=== PATIENT | male | born 1955 | race Caucasian/White ===

== ENCOUNTER → 2016-12-19 | Outpatient (CLI) | payer MEDICARE ==
--- NOTE | 2016-12-19 12:17 | CT ---
EXAMINATION TYPE: CT chest wo con DATE OF EXAM: 12/19/2016 11:18 AM COMPARISON: 06/01/2014 HISTORY: SOB CT DLP: 391.4 mGycm, Automated exposure control for dose reduction was used. CONTRAST: Performed injected with 0 mL of Omnipaque 300. TECHNIQUE: Axial images were obtained at 5 mm thick sections. Reconstructed images are reviewed on [employer] computer in the coronal plane. FINDINGS: Portion of the thyroid visualized is normal. Pulmonary fibrosis is within the right apex. Extensive emphysematous changes are present within the l eft lung. Pulmonary fibrosis is within the right middle lobe and lingula. Some posterior pulmonary fi brosis is present. No enlarged mediastinal or hilar adenopathy is evident. The ascending aorta diameter at the level o f the main pulmonary artery is 3.8 cm. The main pulmonary artery diameter at the bifurcation is 4.5 cm. Correlate for pulmonary hypertension. Coronary artery calcification is present. Limited CT sections are obtained through the upper abdomen. Abdomen is essentially unremarkable. IMPRESSIONS: 1. Pulmonary fibrosis and COPD. 2. Correlate for pulmonary hypertension.
== END | disposition home or self-care (01) ==
LOC: RADCTMAIN 11:00
PROVIDERS: ATTEND Internal Medicine
DX: J44.9 Chronic obstructive pulmonary disease, unspecified (principal); J84.10 Pulmonary fibrosis, unspecified
CPT/HCPCS: 71250

== ENCOUNTER → 2018-09-23 | Outpatient (CLI) | payer MEDICARE ==
[2018-09-23 10:56] LABS: Blood Urea Nitrogen 14 mg/dL (9-20)
--- NOTE | 2018-09-23 13:10 | CT ---
EXAMINATION TYPE: CT neck chest w con DATE OF EXAM: 09/23/2018 COMPARISON: CT chest 12/19/2016 HISTORY: 63-year-old male Malignant carcinoid tumors of other sites TECHNIQUE: Contiguous axial scanning of the neck and chest performed with IV Contrast, patient inject ed with 100 ml mL of Isovue 300. Coronal/sagittal reconstructions performed. CT DLP: 1243 mGycm Automated exposure control for dose reduction was used. FINDINGS: NECK: Visualized intracranial structures, orbits and globes, and mastoid air cells appear clear. Small muco patricia retention cyst anterior floor of the left maxillary sinus. The nasopharynx and oropharynx are clear. No prevertebral soft tissue thickening. Epiglottis is normal. There is an air pocket which projects right laterally from the level of the oropharynx between the hy oid bone and thyroid cartilage. This air-filled laryngocele measures 1.9 x 1.7 cm and 1.6 cm cranioca udal with both dilated internal and external components. There is some oblique orientation of the larynx and asymmetric effacement of the left frontal sinus w hich may be positional. Direct visualization can further evaluate slight asymmetric thickening of the left aryepiglottic fold (axial image 55) which may be a product of the positioning of the larynx. Th e tracheal column is clear. Thyroid gland, submandibular glands, and parotid glands appear satisfactory. No thoracic lymphadenopathy. Some prominent right-sided posterior cervical lymph nodes measuring up to 1.2 x 0.9 cm, axial image 4 5 and coronal image 84. Otherwise, no cervical lymphadenopathy. Mild cervical spondylosis. CHEST: Heart borderline enlarged without pericardial effusion. Coronary vessel calcifications are present. Large caliber to the main right and the pulmonary arteries and 3.3 and 3.8 cm, respectively. Aorta normal caliber with conventional branching anatomy. No thoracic lymphadenopathy by CT size criteria. Mild left greater than right asymmetric gynecomastia. Tavo honeycombing relatively sparing the left upper lobe or emphysematous changes demonstrated. No c onsolidation or pleural effusion. Tiny hiatal hernia. Visualized upper abdomen shows a nonspecific 1.5 cm hypodense lesion inferior right liver lobe and a nonspecific 1.9 cm soft tissue attenuating lesion of the anterior right kidney. Bones: End plate spondylosis mid to lower thoracic spine. No osseous destructive process. IMPRESSION: NECK: 1. INCIDENTAL 1.9 X 1.7 X 1.6 CM AIR-FILLED RIGHT SIDED LARYNGOCELE. 2. SLIGHT ASYMMETRIC THICKENING OF THE LEFT ARYEPIGLOTTIC FOLD MAY BE SECONDARY TO SLIGHT OBLIQUE POS ITIONING OF THE LARYNX. DIRECT VISUALIZATION TO EXCLUDE A MUCOSAL LESION. 3. PROMINENT POSTERIOR CERVICAL LYMPH NODES ON THE RIGHT MEASURING UP TO 1.2 X 0.9 CM. CORRELATE T O THIS REPRESENTS THE PATIENT'S METASTATIC NEUROENDOCRINE TUMOR. OTHERWISE, NO CERVICAL LYMPHADENOPAT HY SEEN. CHEST: 1. IN THE VISUALIZED UPPER ABDOMEN, THERE IS A NONSPECIFIC 1.9 CM SOFT TISSUE DENSITY LESION OF THE A NTERIOR RIGHT KIDNEY. BOTH SOLID MASS AND PROTEINACEOUS/HEMORRHAGIC CYST ARE POSSIBLE. RECOMMEND KAROL L ULTRASOUND TO ATTEMPT FURTHER CHARACTERIZATION. IF THE ULTRASOUND REMAINS INCONCLUSIVE, DEDICATED C ROSS-SECTIONAL KIDNEY IMAGING MAY BE NEEDED. 2. ALSO, INDETERMINATE 1.5 CM LESION INFERIOR RIGHT LIVER LOBE. NOT CLEARLY SEEN ON THE PATIENT'S 2017 NONCONTRAST STUDY. CORRELATE TO THE SITE OF PATIENT'S KNOWN CARCINOID TUMOR. THIS IS A NONSPECIFIC LESION BUT METASTATIC DISEASE IS NOT EXCLUDED AT THIS TIME. 3. TAVO HONEYCOMBING SUGGESTS UIP PATTERN OF LUNG INJURY. PULMONARY ARTERIAL HYPERTENSION AND BORDER LINE CARDIOMEGALY.
== END ==
LOC: RADCTMAIN 10:21
PROVIDERS: ATTEND Otolaryngology
DX: J38.7 Other diseases of larynx (principal); N28.89 Other specified disorders of kidney and ureter; I27.21 Secondary pulmonary arterial hypertension; I51.7 Cardiomegaly; C7A.098 Malignant carcinoid tumors of other sites
CPT/HCPCS: 82565; 84520; 70491; 71260; 36415; Q9967

== ENCOUNTER → 2018-10-11 | Outpatient (CLI) | payer MEDICARE ==
--- NOTE | 2018-10-13 10:57 | PE ---
Nuclear medicine PET/CT HISTORY: Neck mass, initial, neuroendocrine tumor metastasis Patient received 11.8 mCi F-18 FDG intravenously, delayed scanning was performed from the skull base to the mid thighs. Localization and attenuation correction CT scan was performed. Correlation to prior neck and chest CT 09/23/2017, CT chest 12/19/2016 Neck and chest: Within the posterior right neck there is a small node present subcentimeter in size m easuring 7 mm and shows some mild increased uptake, SUV is 2.8, second node is present at the same le cookie of similar size and hypermetabolic uptake as noted on patient's CT. Pulmonary artery is prominent , correlate for possible pulmonary artery hypertension. Heart is enlarged. There are coronary artery calcifications present. No mediastinal, axillary, or hilar adenopathy. Extensive emphysematous change s, end-stage fibrosis change present within the lungs. Abdomen pelvis: The left kidney is not seen. Focus in the inferior aspect of the right lobe of the li zhou shows hypermetabolic uptake measuring 8 cm, there is vague hypodensity measuring approximately 2 cm in size. No additional abnormal hypermetabolic uptake. Probable physiologic uptake involving the r ight colon. Suspect a Hutch diverticulum posterior laterally at the urinary bladder. Extensive divert icular change in the sigmoid colon. Osseous structures are remarkable except for sclerotic focus in the mid sacrum. No suspicious hyperme tabolic uptake. IMPRESSION: Findings compatible with metastatic disease.
== END ==
LOC: RADPETMAIN 14:23
PROVIDERS: ATTEND Otolaryngology
DX: C7A.8 Other malignant neuroendocrine tumors (principal)
CPT/HCPCS: 78815; A9552

== ENCOUNTER 2019-01-08 14:30 | Inpatient (IN) | payer MEDICARE ==
[2019-01-08] MEDS ORDERED: DEXAMETHASONE SOD PHOSPHATE 10 MG/ML 1 ML VIAL IV STA (14:51)
[2019-01-08] MEDS ORDERED: IPRATROPIUM-ALBUTEROL 3 ML NEB INHALATION STA (14:51)
[2019-01-08] MEDS ORDERED: AZITHROMYCIN 500 MG in SODIUM CHLORIDE 0.9% 250 ML IVPB STA (14:52)
--- NOTE | 2019-01-08 14:57 | ED ---
General Adult HPI - General Chief complaint: Shortness of Breath Stated complaint: Low O2 CA PT Time Seen by Provider: 01/08/19 14:37 Source: patient Mode of arrival: wheelchair Limitations: no limitations - History of Present Illness Initial comments: Dictation was produced using [employer] dictation software. please excuse any grammatical, word or spelling errors. Chief Complaint: 63-year-old male past medical history pulmonary fibrosis presents with worsening dyspnea. History of Present Illness: His 63-year-old male. He has past medical history of pulmonary fibrosis. He uses 5 L nasal cannula chronically. Patient states over the last 3-4 days he's been having worsening shortness of breath. Patient had received chemotherapy recently. He states that he has had increased cough, but nonproductive. He does feel worsening shortness of breath. Patient denies any fever, chills or night sweats. Denies any numbness or paresthesias to the arms or legs. Denies any sore throat. He does report some mild urinary Sy mptoms. Denies any history of blood clots. He does report being on anti- coagulation medications however does not know the name of it. The ROS documented in this emergency department record has been reviewed and confirmed by me. Those systems with pertinent positive or negative responses have been documented in the HPI. All other systems are other negative and/or noncontributory. PHYSICAL EXAM: General Impression: Alert and oriented x3, dyspneic HEENT: Normocephalic atraumatic, extra-ocular movements intact, pupils equal and reactive to light bilaterally, mucous membranes moist. Cardiovascular: Heart regular rate and rhythm, S1&S2 audible, no murmurs, rubs or gallops Chest: Bilateral breath sounds, mild wheezing Abdomen: Bowel sounds present, abdomen soft, non-tender, non-distended, no organomegaly Musculoskeletal: Pulses present and equal in all extremities, no peripheral edema Motor: no focal deficits noted Neurological: CN II-XII grossly intact, no focal motor or sensory deficits noted Skin: Intact with no visualized rashes Psych: Normal affect and mood ED course: 63-year-old male presents with acute respiratory distress. States the symptoms have been progressively worsening over the last 2-3 days. Vital signs upon arrival shows oxygen and 80% on 5 L nasal cannula. Rest of vital signs are unremarkable. Lavatory evaluation shows white blood cell count 22.1. Hemoglobin stable at 11.7. CBC otherwise appears unchanged. Coag panel unremarkable. Metabolic panel shows alkalosis likely secondary to chronic respiratory disease. Metabolic panel is otherwise unremarkable. Prematurity peptide 3620. Chest x- ray showed chronic stable pulmonary fibrosis. There is concern that patient had pulmonary embolus. CT angios obtained showing no PE. Clinical presentation is concerning for COPD exacerbation. Patient given breathing treatment with mild improvement of symptoms. Patient is comfortable at bedside. Patient given corticosteroids and antibiotics. Patient be admitted to Dr. Terry with pulmonology on consult. EKG interpretation: Ventricular rate 124, sinus tachycardia,. Interval 116, QS 100, QTC 460. No MN prolongation, no QTC prolongation, no ST or T-wave changes noted. - Related Data Home Medications Medication Instructions Recorded Confirmed Atorvastatin [Lipitor] 10 mg PO DAILY 01/08/19 01/08/19 Fluticasone Nasal [place] [Flonase 2 spray EA NOSTRIL DAILY 01/08/19 01/08/19 Nasal [place]] HYDROcodone/APAP 5-325MG [[place] 1 tab PO BID PRN 01/08/19 01/08/19 5-325] Ibuprofen [Motrin] 800 mg PO TID 01/08/19 01/08/19 Losartan [Cozaar] 25 mg PO DAILY 01/08/19 01/08/19 Ondansetron [Zofran] 4 mg PO Q6HR PRN 01/08/19 01/08/19 Pirfenidone [Esbriet] 3 tab PO DAILY 01/08/19 01/08/19 Sulfamethox-Tmp 800-160Mg [Bactrim 1 tab PO MOWEFR 01/08/19 01/08/19 DS 800-160 mg] predniSONE 1 - 2 tab PO DAILY 01/08/19 01/08/19 Allergies Allergy/AdvReac Type Severity Reaction Status Date / Time No Known Allergies Allergy Verified 01/08/19 15:03 Review of Systems ROS Statement: Those systems with pertinent positive or pertinent negative responses have been documented in the HPI. ROS Other: All systems not noted in ROS Statement are negative. Past Medical History History of Any Multi-Drug Resistant Organisms: None Reported Past Psychological History: No Psychological Hx Reported Smoking Status: Never smoker Past Alcohol Use History: None Reported Past Drug Use History: None Reported General Exam Limitations: no limitations Course Vital Signs 01/08/19 01/08/19 01/08/19 14:33 14:35 15:00 Temperature 98.0 F Pulse Rate 90 Respiratory 20 30 H 21 Rate Blood Pressure 92/57 111/67 O2 Sat by Pulse 80 L 93 L Oximetry 01/08/19 01/08/19 01/08/19 15:08 15:17 15:30 Temperature Pulse Rate 64 64 Respiratory 19 Rate Blood Pressure 98/75 O2 Sat by Pulse 95 Oximetry 01/08/19 16:00 Temperature Pulse Rate 98 Respiratory 21 Rate Blood Pressure 106/72 O2 Sat by Pulse 90 L Oximetry Medical Decision Making - Lab Data Result diagrams: 01/08/19 14:48 01/08/19 14:48 Lab Results 01/08/19 01/08/19 01/08/19 Range/Units 14:48 14:48 14:48 WBC 23.1 H (3.8-10.6) k/uL RBC 3.42 L (4.30-5.90) m/uL Hgb 11.7 L (13.0-17.5) gm/dL Hct 36.3 L (39.0-53.0) % MCV 106.2 H (80.0-100.0) fL MCH 34.2 (25.0-35.0) pg MCHC 32.2 (31.0-37.0) g/dL RDW 22.5 H (11.5-15.5) % Plt Count 130 L (150-450) k/uL Neutrophils % 95 % Lymphocytes % 2 % Monocytes % 2 % Eosinophils % 0 % Basophils % 0 % Neutrophils # 21.9 H (1.3-7.7) k/uL Lymphocytes # 0.5 L (1.0-4.8) k/uL Monocytes # 0.5 (0-1.0) k/uL Eosinophils # 0.1 (0-0.7) k/uL Basophils # 0.0 (0-0.2) k/uL Poikilocytosis Slight Anisocytosis Moderate Macrocytosis Marked A PT 11.6 (9.0-12.0) sec INR 1.1 (<1.2) APTT 18.3 L (22.0-30.0) sec Sodium 138 (137-145) mmol/L Potassium 4.3 (3.5-5.1) mmol/L Chloride 96 L (98-107) mmol/L Carbon Dioxide 33 H (22-30) mmol/L Anion Gap 9 mmol/L BUN 19 (9-20) mg/dL Creatinine 0.82 (0.66-1.25) mg/dL Est GFR (CKD-EPI)AfAm >90 (>60 ml/min/1.73 sqM) Est GFR (CKD-EPI)NonAf >90 (>60 ml/min/1.73 sqM) Glucose 183 H (74-99) mg/dL Calcium 9.6 (8.4-10.2) mg/dL Magnesium 1.7 (1.6-2.3) mg/dL Total Bilirubin 0.5 (0.2-1.3) mg/dL AST 38 (17-59) U/L ALT 33 (21-72) U/L Alkaline Phosphatase 118 (38-126) U/L Troponin I (0.000-0.034) ng/mL NT-Pro-B Natriuret Pep pg/mL Total Protein 6.5 (6.3-8.2) g/dL Albumin 4.3 (3.5-5.0) g/dL 01/08/19 01/08/19 Range/Units 14:48 14:48 WBC (3.8-10.6) k/uL RBC (4.30-5.90) m/uL Hgb (13.0-17.5) gm/dL Hct (39.0-53.0) % MCV (80.0-100.0) fL MCH (25.0-35.0) pg MCHC (31.0-37.0) g/dL RDW (11.5-15.5) % Plt Count (150-450) k/uL Neutrophils % % Lymphocytes % % Monocytes % % Eosinophils % % Basophils % % Neutrophils # (1.3-7.7) k/uL Lymphocytes # (1.0-4.8) k/uL Monocytes # (0-1.0) k/uL Eosinophils # (0-0.7) k/uL Basophils # (0-0.2) k/uL Poikilocytosis Anisocytosis Macrocytosis PT (9.0-12.0) sec INR (<1.2) APTT (22.0-30.0) sec Sodium (137-145) mmol/L Potassium (3.5-5.1) mmol/L Chloride (98-107) mmol/L Carbon Dioxide (22-30) mmol/L Anion Gap mmol/L BUN (9-20) mg/dL Creatinine (0.66-1.25) mg/dL Est GFR (CKD-EPI)AfAm (>60 ml/min/1.73 sqM) Est GFR (CKD-EPI)NonAf (>60 ml/min/1.73 sqM) Glucose (74-99) mg/dL Calcium (8.4-10.2) mg/dL Magnesium (1.6-2.3) mg/dL Total Bilirubin (0.2-1.3) mg/dL AST (17-59) U/L ALT (21-72) U/L Alkaline Phosphatase (38-126) U/L Troponin I <0.012 (0.000-0.034) ng/mL NT-Pro-B Natriuret Pep 3620 pg/mL Total Protein (6.3-8.2) g/dL Albumin (3.5-5.0) g/dL Disposition Clinical Impression: Dyspnea Disposition: ADMITTED IP TO THIS HOSP Condition: Fair Referrals: Shashi England MD [Primary Care Provider] - 1-2 days Decision Time: 16:43
[2019-01-08 15:18] LABS: ALT 33 U/L (21-72); AST 38 U/L (17-59); African American GFR (CKD) >90 (>60 ml/min/1.73 sqM); Albumin 4.3 g/dL (3.5-5.0); Alkaline Phosphatase 118 U/L (38-126); Anion Gap 9 mmol/L; Blood Urea Nitrogen 19 mg/dL (9-20); Calcium 9.6 mg/dL (8.4-10.2); Carbon Dioxide 33 mmol/L (22-30); Chloride 96 mmol/L (98-107); Glucose 183 mg/dL (74-99); Magnesium 1.7 mg/dL (1.6-2.3); Potassium 4.3 mmol/L (3.5-5.1); Sodium 138 mmol/L (137-145); Total Bilirubin 0.5 mg/dL (0.2-1.3); Total Protein 6.5 g/dL (6.3-8.2)
[2019-01-08 15:24] LABS: Anisocytosis Moderate; Basophils % (A) 0 %; Eosinophils # (A) 0.1 k/uL (0-0.7); Eosinophils % (A) 0 %; HCT 36.3 % (39.0-53.0); HGB 11.7 gm/dL (13.0-17.5); INR 1.1 (<1.2); Lymphocytes # (A) 0.5 k/uL (1.0-4.8); Lymphocytes % (A) 2 %; MCH 34.2 pg (25.0-35.0); MCHC 32.2 g/dL (31.0-37.0); MCV 106.2 fL (80.0-100.0); Macrocytosis Marked; Mean Platelet Volume 8.8; Monocytes # (A) 0.5 k/uL (0-1.0); Monocytes % (A) 2 %; Neutrophils # (A) 21.9 k/uL (1.3-7.7); Neutrophils % (A) 95 %; Platelet Count 130 k/uL (150-450); Poikilocytosis Slight; Prothrombin Time 11.6 sec (9.0-12.0); RBC 3.42 m/uL (4.30-5.90); RDW 22.5 % (11.5-15.5); WBC 23.1 k/uL (3.8-10.6)
[2019-01-08 15:41] LABS: Partial Thromboplastin Time 18.3 sec (22.0-30.0)
--- NOTE | 2019-01-08 16:21 | XR ---
EXAMINATION TYPE: XR chest 2V DATE OF EXAM: 01/08/2019 COMPARISON: 05/29/2018 INDICATION: Difficulty breathing TECHNIQUE: Frontal and lateral views of the chest are obtained. FINDINGS: The heart size is mildly prominent. The pulmonary vasculature is normal. There is diffuse increased lung markings compatible pulmonary fibrosis. Pattern and distribution appe ars stable from comparison. IMPRESSION: 1. No suspicious acute pulmonary process. 2. Findings suggestive for underlying pulmonary fibrosis, stable
--- NOTE | 2019-01-08 16:37 | CT ---
CT CHEST FOR PULMONARY EMBOLISM. EXAMINATION TYPE: CT angio chest DATE OF EXAM: 01/08/2019 INDICATION: SOB, hx of pulmonary fibrosis CT DLP: 289 mGycm, Automated exposure control for dose reduction was used. CONTRAST: Patient injected with 80 mL of Isovue 370. COMPARISON: 09/23/2018 TECHNIQUE: CT of the chest is performed on a spiral scan at 2 mm thick sections. Study is performed with intravenous contrast timed for evaluation for pulmonary embolism. This will limit additional po rtions of the evaluation. 3-D MIP images reconstructed by the technologist are reviewed on the compu ter in the coronal and sagittal planes. FINDINGS: No persistent filling defects are evident to suggest an acute pulmonary embolism. No mediastinal or hilar adenopathy enlarged by CT criteria is evident. The ascending aorta diameter at the level of the main pulmonary artery is 3.5 cm. The main pulmonary artery diameter at the bifur cation is 4.4 cm. Correlate for pulmonary hypertension. Mild reflux is into the inferior vena cava. H eart Septum appears midline. Extensive emphysematous type changes with multiple blebs and bulla are present. Limited CT section through the upper abdomen are unremarkable. IMPRESSIONS: 1. No acute pulmonary embolism. 2. Extensive pulmonary fibrosis and/or emphysematous changes within the lung cui. 3. Pulmonary hypertension.
[2019-01-08] MEDS ORDERED: ONDANSETRON 4 MG TAB PO PRN (16:46)
[2019-01-08] MEDS: methylPREDNISolone SOD SUCCI 125 MG/2 ML VIAL IV SCH (18:23)
[2019-01-08] MEDS: HYDROcodone/APAP 5-325MG 1 EACH TAB PO PRN (19:35)
[2019-01-08 21:22] LABS: Glucose,Whole Blood 216 mg/dL (75-99)
[2019-01-08] MEDS: INSULIN ASPART (NovoLOG) 100 UNIT/ML VIAL SQ SCH (21:44)
[2019-01-08] MEDS: FLUTICASONE 50MCG/SPRAY NASAL 16GM EA NOSTRIL SCH (21:45)
[2019-01-09] MEDS: methylPREDNISolone SOD SUCCI 125 MG/2 ML VIAL IV SCH ×4 (00:44→21:46)
[2019-01-09] MEDS: IBUPROFEN 800 MG TAB PO SCH ×3 (00:44→16:24)
[2019-01-09 06:25] LABS: Glucose,Whole Blood 96 mg/dL (75-99)
[2019-01-09] MEDS: INSULIN ASPART (NovoLOG) 100 UNIT/ML VIAL SQ SCH ×4 (06:27→21:47)
[2019-01-09] MEDS: SYMBICORT 160-4.5 MCG INHALER INHALATION SCH ×2 (08:12→20:43)
--- NOTE | 2019-01-09 08:26 | HP ---
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 Since he has been kind of weak and fatigued and increased productive cough. Denies any fever, chills, night sweats. He says maybe chemotherapy made him immune or his immune system poor. This is generally like a COPD exacerbation, possible pneumonia. REVIEW OF SYSTEMS: Fourteen point review of systems negative except for mentioned in HPI. HISTORY OF PRESENT ILLNESS: Vital signs reviewed. Temp 98, respiratory 20-21, O2 is 80% on 5 L, now up to 93. CARDIOVASCULAR S1-S2. LUNGS scattered wheeze. ABDOMEN: Soft. MUSCULOSKELETAL: Range of motion full. Thin, cachectic. SKIN: No rash excoriations. ASSESSMENT: 1. Chronic obstructive pulmonary disease exacerbation. 2. Tracheobronchitis versus pneumonia. 3. Leukocytosis secondary to above. 4. Acute hypoxemic respiratory distress secondary to above. 5. CT of the chest negative for pulmonary embolism. 6. He has sinus tachycardia secondary to above. 7. History of small-cell cancer of the neck. PLANS: Continue with IV antibiotics, steroids. Pulmonary consult. Troponins negative. BNP 3620. Please see further orders. MMODL / IJN: [id number] /
[2019-01-09] MEDS ORDERED: predniSONE 20 MG TAB PO SCH (09:00)
[2019-01-09] MEDS: LOSARTAN 25 MG TAB PO SCH (09:13)
[2019-01-09] MEDS: AZITHROMYCIN 500 MG TAB PO SCH (09:13)
[2019-01-09] MEDS: HYDROcodone/APAP 5-325MG 1 EACH TAB PO PRN ×2 (09:13→21:46)
[2019-01-09] MEDS: ATORVASTATIN 10 MG TAB PO SCH (09:15)
[2019-01-09] MEDS: PIRFENIDONE PO SCH (09:17)
--- NOTE | 2019-01-09 09:39 | CONS ---
CONSULTATION PULMONARY/CRITICAL CARE CONSULTATION: This is a 63-year-old male who I have seen before who sees my partner on a more regular basis. His primary care physician is Dr. Shashi England. He apparently was brought into the emergency room by wheelchair with low saturations and shortness of breath. He apparently has a well-established history of pulmonary fibrosis and has been on both prednisone and anti-fibrotic agent for a long period of time. I think he initially saw me then my partner and he ended up having a lung biopsy showing evidence of idiopathic pulmonary fibrosis and he was sent to Dr. Mega gardner at [facility] for his evaluation. Currently, the patient is on Esbriet and prednisone for his pulmonary fibrosis. More recently, he was discovered to have a neck mass which was biopsied via fine needle. 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 The patient has undergone 3 rounds of chemotherapy. Anyway he comes in with complaints of a 3 to 4 days worth of increasing shortness of breath, chest congestion, coughing, wheezing, phlegm production. No fever or chills. No chest pain or chest discomfort. No GI or complaints. For that reason, he was evaluated and eventually admitted to the hospital. He appears to have seen Dr. Marti in the emergency room. MEDICATIONS: His current home medications include Lipitor, Flonase nasal spray, [place], Motrin, Cozaar, Zofran, Esbriet, Bactrim and prednisone. ALLERGIES: Allergies are denied. MEDICAL HISTORY: His medical history includes hyperlipidemia, biopsy-proven idiopathic pulmonary fibrosis, hypertension, and a few other minor medical issues. SURGICAL HISTORY: Surgical history includes among other things a lung biopsy. OCCUPATIONAL HISTORY: Noncontributory. SOCIAL HISTORY: Social history is negative for tobacco or alcohol or illicit drug use. The rest of the history is not too remarkable. Allergic history is negative. REVIEW OF SYSTEMS: CONSTITUTIONAL: Weakness. NEUROLOGIC: Negative. HEENT: Negative. CARDIOVASCULAR: Negative. PULMONARY: Worsening shortness of breath, cough, chest congestion and phlegm production. GI: Negative. : Negative. RHEUMATOLOGIC: Negative. IMMUNOLOGIC: Negative. ENDOCRINOLOGIC: Negative. DERMATOLOGIC: Negative. It should be pointed out that he has undergone 3 rounds of chemotherapy for his high- grade neuroendocrine carcinoma and recently had a PET scan which apparently showed evidence of metastatic disease. PHYSICAL EXAMINATION: VITAL SIGNS: Vital signs are reviewed. Temperature 98.2, heart rate 96, respiratory rate 18, blood pressure 134/58, mean 83 and 5 L saturation is 95%. GENERAL: Appears in no acute distress. Mildly tachypneic. No use of accessory muscles. No audible wheezing. Minimal conversational dyspnea. HEENT: Examination is grossly unremarkable. He is wearing nasal O2. NECK: Supple. Full range of motion. No adenopathy or thyromegaly. Neck veins are flat. CARDIOVASCULAR: Examination reveals regular rhythm and rate. Heart rate about 70 beats per minute. It is regular. S1, S2 normal. Heart sounds are somewhat obscured. LUNGS: Reveal bibasilar Velcro crackles. His exam is consistent with pulmonary fibrosis. He is mildly restricted in his breathing. No rhonchi or wheezes. Breath sounds are equal. ABDOMEN: Soft. Bowel sounds are heard. No masses or tenderness. EXTREMITIES: Are intact. No cyanosis, clubbing, or edema. SKIN: Without rash. NEUROLOGIC: Examination is nonfocal. The patient had a chest x-ray which showed pulmonary fibrosis. His chest CT angiogram was consistent with pulmonary fibrosis without pulmonary embolism. LABS: Labs are reviewed. White count 23.1, hemoglobin 11.7, hematocrit 36.3, platelet count 130,000. PT, INR normal. PTT 18.3. Sodium 138, potassium 4.3, chloride 96, CO2 is 33. Anion gap is 9. BUN and creatinine were 19 and 0.82. The rest of the comprehensive metabolic profile looks okay. N terminal proBNP is elevated at 3620. The rest of the labs look okay. ASSESSMENT: 1. Shortness of breath, secondary to biopsy-proven pulmonary fibrosis/interstitial lung disease/usual interstitial pneumonia, currently on anti-fibrotic agent, i.e. Esbriet as well as prednisone. 2. Rule out occult pulmonary infection. 3. High-grade neuroendocrine carcinoma, status post 3 rounds of chemotherapy, with recent PET scan showing metastatic disease. 4. History of hyperlipidemia. 5. History of degenerative joint disease. 6. History of hypertension. PLAN: The patient's medications will be reviewed. We will make sure we get him on good medications including breathing treatments and steroids as well as some oral antibiotics. His CAT scan and x-ray really have not changed from previous test. We will also have him see the oncologist. Additional recommendations and suggestions are forthcoming. Prognosis is guarded. MMODL / IJN: [id number] /
--- NOTE | 2019-01-09 10:47 | CDI ---
Documentation Clarification Form Date: 01/09/2019 10:35:07 AM From: Jazzy OronaRodriguezJAY coley, CCDS Admit Date: 01/08/2019 4:43:00 PM Patient Name: Andrea Cash Visit Number: [id number] Discharge Date: ATTENTION: The Clinical Documentation Specialists (CDI) and [facility] Coding Staff appreciate your assistance in clarifying documentation. Please respond to the clarification below the line at the bottom and electronically sign. The CDI & [facility] Coding staff will review the response and follow-up if needed. Please note: Queries are made part of the Legal Health Record. If you have any questions, please contact the author of this message via ITS. Dr. Shashi England: The patient presented with the following respiratory symptoms: SOB, productive cough, weak & fatigued. History/Risk Factors: Non small cell carcinoma of the neck status post 3 rounds of chemo, most recent 2 weeks ago, possible metastatic disease nos. COPD, Home O2 5L nc atc, Pulmonary fibrosis. Tobacco use: non smoker. Clinical Indicators: Presented as above. Diagnosed with Acute hypoxemic respiratory distress, documented in History & Physical and possible COPD exacerbation, possible pneumonia. Vital signs: T 98.0, P 90, R 20 - 30 (sob, labored, accessory muscle use); BP 92/57, PO 80 on 5Lnc. LABS: CO2 33^, Glucose 183^ Treatment: Telemetry, Insulin sliding scale, Blood culture, Albuterol INH, IV Decadron, IV Azithromycin, IV Rocephin. O2 5Lnc. In your professional opinion, can you please clarify the acuity & specificity of the patients respiratory findings as one of the following conditions, if known: Acuity & Specificity: o Acute on Chronic Hypoxic Respiratory Failure o Acute hypoxemic respiratory distress (as documented) o Other Acute, Chronic or Acute on Chronic Respiratory condition, please specify: o Unable to determine (Last Revision: November 2017) MTDD
[2019-01-09] MEDS: FLUTICASONE 50MCG/SPRAY NASAL 16GM EA NOSTRIL SCH (11:11)
[2019-01-09 11:58] LABS: Glucose,Whole Blood 135 mg/dL (75-99)
[2019-01-09] MEDS: IPRATROPIUM-ALBUTEROL 3 ML NEB INHALATION PRN (16:27)
[2019-01-09 16:57] LABS: Glucose,Whole Blood 117 mg/dL (75-99)
[2019-01-09 20:43] LABS: Glucose,Whole Blood 241 mg/dL (75-99)
[2019-01-10] MEDS: IBUPROFEN 800 MG TAB PO SCH ×4 (05:29→21:08)
[2019-01-10 06:10] LABS: Glucose,Whole Blood 137 mg/dL (75-99)
[2019-01-10] MEDS: INSULIN ASPART (NovoLOG) 100 UNIT/ML VIAL SQ SCH ×4 (06:35→21:03)
[2019-01-10 06:58] LABS: Anisocytosis Moderate; Basophils # (A) 0.1 k/uL (0-0.2); Basophils % (A) 0 %; Eosinophils # (A) 0.1 k/uL (0-0.7); Eosinophils % (A) 0 %; HCT 34.6 % (39.0-53.0); HGB 10.8 gm/dL (13.0-17.5); Hypochromasia Slight; Lymphocytes # (A) 0.7 k/uL (1.0-4.8); Lymphocytes % (A) 2 %; MCH 33.9 pg (25.0-35.0); MCHC 31.3 g/dL (31.0-37.0); MCV 108.3 fL (80.0-100.0); Mean Platelet Volume 8.2; Monocytes # (A) 0.5 k/uL (0-1.0); Monocytes % (A) 2 %; Neutrophils % (A) 96 %; Platelet Count 211 k/uL (150-450); WBC 33.4 k/uL (3.8-10.6)
[2019-01-10 07:07] LABS: Macrocytosis Marked
[2019-01-10 07:10] LABS: ALT 34 U/L (21-72); AST 37 U/L (17-59); African American GFR (CKD) >90 (>60 ml/min/1.73 sqM); Albumin 3.6 g/dL (3.5-5.0); Alkaline Phosphatase 100 U/L (38-126); Anion Gap 6 mmol/L; Blood Urea Nitrogen 20 mg/dL (9-20); Calcium 9.1 mg/dL (8.4-10.2); Carbon Dioxide 35 mmol/L (22-30); Chloride 98 mmol/L (98-107); Glucose 136 mg/dL (74-99); Potassium 4.7 mmol/L (3.5-5.1); Sodium 139 mmol/L (137-145); Total Bilirubin 0.3 mg/dL (0.2-1.3); Total Protein 5.9 g/dL (6.3-8.2)
[2019-01-10] MEDS: SYMBICORT 160-4.5 MCG INHALER INHALATION SCH ×2 (08:19→19:13)
[2019-01-10] MEDS: PIRFENIDONE PO SCH (09:07)
[2019-01-10] MEDS: LOSARTAN 25 MG TAB PO SCH (09:18)
[2019-01-10] MEDS: FLUTICASONE 50MCG/SPRAY NASAL 16GM EA NOSTRIL SCH (09:18)
[2019-01-10] MEDS: methylPREDNISolone SOD SUCCI 125 MG/2 ML VIAL IV SCH ×3 (09:19→21:02)
[2019-01-10] MEDS: ATORVASTATIN 10 MG TAB PO SCH (09:19)
[2019-01-10] MEDS: AZITHROMYCIN 500 MG TAB PO SCH (09:19)
--- NOTE | 2019-01-10 09:19 | DS ---
DISCHARGE SUMMARY ADDENDUM: Acute hypoxemic respiratory distress. MMODL / IJN: [id number] /
--- NOTE | 2019-01-10 09:24 | P.PN ---
Subjective Progress Note Date: 01/10/19 Principal diagnosis: Acute on chronic hypoxic respiratory failure secondary to biopsy-proven idiopathic pulmonary fibrosis Patient is seen today 01/10/2019 in follow-up on the selective care unit. Currently resting comfortably in bed. Breathing a bit easier today as compared to yesterday. Still dyspneic on minimal exertion. Still with O2 saturations in the high 80s low 90s on 5 L/m per nasal cannula. He is currently afebrile. Blood culture reveals no growth to date. White count 33.4. Hemoglobin 10.8. Creatinine 0.60. He remains on DuoNeb inhalations, Symbicort, IV Solu-Medrol. Antibiotics in the form of ceftriaxone and azithromycin. CT angiogram ruled out pulmonary embolism. There is noticed extensive pulmonary fibrosis and/or emphysematous changes in the lung cui. Pulmonary hypertension. He is on Esbriet. Objective - Vital Signs Vital signs: Vital Signs Temp 97.4 F L 01/10/19 04:00 Pulse 89 01/10/19 04:00 Resp 24 01/10/19 04:00 BP 142/98 01/10/19 04:00 Pulse Ox 88 L 01/10/19 04:00 Intake & Output 01/09/19 01/10/19 01/10/19 18:59 06:59 18:59 Intake Total 380 300 240 Output Total 550 Balance 380 -250 240 Weight 67.9 kg 70 kg Intake: Intake, IV Titration 50 100 Amount cefTRIAXone 1 gm In 50 100 Sodium Chloride 0.9% 50 ml @ 100 mls/hr IVPB Q12HR [facility] Rx#:[id number] Oral 330 200 240 Output: Urine 550 Other: # Voids 3 # Bowel Movements 0 - Exam GENERAL EXAM: Pleasant 63-year-old gentleman. Alert, fairly comfortable in no apparent distress. On 5 L/m per nasal cannula. HEAD: Normocephalic. EYES: Normal reaction of pupils, equal size. NOSE: Clear with pink turbinates. THROAT: No erythema or exudates. NECK: No masses, no JVD. CHEST: No chest wall deformity. LUNGS: Equal air entry with coarse crackles in the bilateral posterior bases. CVS: S1 and S2 normal with no audible murmur, regular rhythm. ABDOMEN: No hepatosplenomegaly, normal bowel sounds, no guarding or rigidity. SPINE: No scoliosis or deformity SKIN: No rashes CENTRAL NERVOUS SYSTEM: No focal deficits, tone is normal in all 4 extremities. EXTREMITIES: There is no peripheral edema. No clubbing, no cyanosis. Peripheral pulses are intact. - Labs CBC & Chem 7: 01/10/19 06:24 01/10/19 06:24 Labs: Abnormal Lab Results - Last 24 Hours (Table) 01/09/19 01/09/19 01/09/19 Range/Units 11:40 16:55 20:42 WBC (3.8-10.6) k/uL RBC (4.30-5.90) m/uL Hgb (13.0-17.5) gm/dL Hct (39.0-53.0) % MCV (80.0-100.0) fL RDW (11.5-15.5) % Neutrophils # (1.3-7.7) k/uL Lymphocytes # (1.0-4.8) k/uL Macrocytosis Carbon Dioxide (22-30) mmol/L Creatinine (0.66-1.25) mg/dL Glucose (74-99) mg/dL POC Glucose (mg/dL) 135 H 117 H 241 H (75-99) mg/dL Total Protein (6.3-8.2) g/dL 01/10/19 01/10/19 01/10/19 Range/Units 06:09 06:24 06:24 WBC 33.4 H (3.8-10.6) k/uL RBC 3.20 L (4.30-5.90) m/uL Hgb 10.8 L (13.0-17.5) gm/dL Hct 34.6 L (39.0-53.0) % MCV 108.3 H (80.0-100.0) fL RDW 23.0 H (11.5-15.5) % Neutrophils # 32.0 H (1.3-7.7) k/uL Lymphocytes # 0.7 L (1.0-4.8) k/uL Macrocytosis Marked A Carbon Dioxide 35 H (22-30) mmol/L Creatinine 0.60 L (0.66-1.25) mg/dL Glucose 136 H (74-99) mg/dL POC Glucose (mg/dL) 137 H (75-99) mg/dL Total Protein 5.9 L (6.3-8.2) g/dL Microbiology - Last 24 Hours (Table) 01/08/19 14:50 Blood Culture - Preliminary Blood No Growth after 24 hours Assessment and Plan Assessment: Impression: #1 Acute on chronic hypoxic respiratory failure secondary to biopsy-proven idiopathic pulmonary fibrosis. Cannot rule out underlying pneumonic process. #2 Leukocytosis secondary to above. 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 FNA 08/19/2018. Receiving chemotherapy. #4 Hypertension. #5 Hyperlipidemia. The patient was seen and evaluated by Dr. Washington. We will continue the current treatment plan. Continue bronchodilators and IV Solu-Medrol. Remains on ceftriaxone and azithromycin. Continue his home Esbriet. Titrate down the FiO2 as tolerated. We will continue to follow and make further recommendations based on his clinical status. I, the cosigning physician, performed a history & physical examination of the patient. Lungs sounds with coarse crackles in the bilateral posterior bases. Maintaining good O2 saturations in the 90s on 5 L/m per nasal cannula. I discussed the assessment and plan of care with my nurse practitioner, Beatriz Issa. I attest to the above note as dictated by her.
[2019-01-10 11:50] LABS: Glucose,Whole Blood 165 mg/dL (75-99)
[2019-01-10] MEDS: HYDROcodone/APAP 5-325MG 1 EACH TAB PO PRN ×2 (11:53→21:02)
--- NOTE | 2019-01-10 13:14 | P.PN ---
Subjective Progress Note Date: 01/10/19 Principal diagnosis: Acute on chronic hypoxic respiratory failure, idiopathic pulmonary fibrosis, leukocytosis, right neck mass, high-grade neuroendocrine tumor, hypertension hypertensive cardiovascular disease, dyslipidemia 01/10/2019, patient seen and evaluated examined while covering for Dr. Shashi England, patient is resting on supplemental oxygen, computed tomography scan reviewed labs reviewed remains on IV antibiotics and IV steroids along with bronchodilator, patient has idiopathic pulmonary fibrosis with history of recent neuroendocrine tumor presenting as a neck mass has been on antibiotics and breathing treatment Objective - Vital Signs Vital signs: Vital Signs Temp 97.7 F 01/10/19 08:00 Pulse 80 01/10/19 08:00 Resp 20 01/10/19 08:00 BP 125/75 01/10/19 08:00 Pulse Ox 90 L 01/10/19 08:00 Intake & Output 01/09/19 01/10/19 01/10/19 18:59 06:59 18:59 Intake Total 380 300 240 Output Total 550 Balance 380 -250 240 Weight 67.9 kg 70 kg Intake: Intake, IV Titration 50 100 Amount cefTRIAXone 1 gm In 50 100 Sodium Chloride 0.9% 50 ml @ 100 mls/hr IVPB Q12HR [facility] Rx#:[id number] Oral 330 200 240 Output: Urine 550 Other: # Voids 3 # Bowel Movements 0 - Exam GENERAL EXAM: Pleasant 63-year-old gentleman. Alert, fairly comfortable in no apparent distress. On 5 L/m per nasal cannula. HEAD: Normocephalic. EYES: Normal reaction of pupils, equal size. NOSE: Clear with pink turbinates. THROAT: No erythema or exudates. NECK: No masses, no JVD. CHEST: No chest wall deformity. LUNGS: Equal air entry with coarse crackles in the bilateral posterior bases. CVS: S1 and S2 normal with no audible murmur, regular rhythm. ABDOMEN: No hepatosplenomegaly, normal bowel sounds, no guarding or rigidity. SPINE: No scoliosis or deformity SKIN: No rashes CENTRAL NERVOUS SYSTEM: No focal deficits, tone is normal in all 4 extremities. EXTREMITIES: There is no peripheral edema. No clubbing, no cyanosis. Peripheral pulses are intact. - Labs CBC & Chem 7: 01/10/19 06:24 01/10/19 06:24 Labs: Abnormal Lab Results - Last 24 Hours (Table) 01/09/19 01/09/19 01/10/19 Range/Units 16:55 20:42 06:09 WBC (3.8-10.6) k/uL RBC (4.30-5.90) m/uL Hgb (13.0-17.5) gm/dL Hct (39.0-53.0) % MCV (80.0-100.0) fL RDW (11.5-15.5) % Neutrophils # (1.3-7.7) k/uL Lymphocytes # (1.0-4.8) k/uL Macrocytosis Carbon Dioxide (22-30) mmol/L Creatinine (0.66-1.25) mg/dL Glucose (74-99) mg/dL POC Glucose (mg/dL) 117 H 241 H 137 H (75-99) mg/dL Total Protein (6.3-8.2) g/dL 01/10/19 01/10/19 01/10/19 Range/Units 06:24 06:24 11:41 WBC 33.4 H (3.8-10.6) k/uL RBC 3.20 L (4.30-5.90) m/uL Hgb 10.8 L (13.0-17.5) gm/dL Hct 34.6 L (39.0-53.0) % MCV 108.3 H (80.0-100.0) fL RDW 23.0 H (11.5-15.5) % Neutrophils # 32.0 H (1.3-7.7) k/uL Lymphocytes # 0.7 L (1.0-4.8) k/uL Macrocytosis Marked A Carbon Dioxide 35 H (22-30) mmol/L Creatinine 0.60 L (0.66-1.25) mg/dL Glucose 136 H (74-99) mg/dL POC Glucose (mg/dL) 165 H (75-99) mg/dL Total Protein 5.9 L (6.3-8.2) g/dL Microbiology - Last 24 Hours (Table) 01/08/19 14:50 Blood Culture - Preliminary Blood No Growth after 24 hours Assessment and Plan Assessment: Acute on chronic hypoxic respiratory failure due to IPF IPF Pneumonia High-grade neuroendocrine cancer Hypertension Dyslipidemia Plan: Bronchodilator Antibiotic IV steroids Continue oxygen 5 L of cannula to keep maintain saturation over 88 to 90% Further recommendations pending plan of care as per clinical response of patient Time with Patient: Greater than 30
[2019-01-10] MEDS: IPRATROPIUM-ALBUTEROL 3 ML NEB INHALATION PRN ×2 (15:49→19:13)
[2019-01-10 17:15] LABS: Glucose,Whole Blood 169 mg/dL (75-99)
[2019-01-10 20:30] LABS: Glucose,Whole Blood 223 mg/dL (75-99)
[2019-01-11 06:42] LABS: Glucose,Whole Blood 112 mg/dL (75-99)
[2019-01-11] MEDS: INSULIN ASPART (NovoLOG) 100 UNIT/ML VIAL SQ SCH ×4 (07:00→21:14)
[2019-01-11] MEDS: IPRATROPIUM-ALBUTEROL 3 ML NEB INHALATION PRN ×3 (07:05→19:16)
[2019-01-11] MEDS: SYMBICORT 160-4.5 MCG INHALER INHALATION SCH ×2 (07:05→19:17)
[2019-01-11] MEDS: PIRFENIDONE PO SCH (08:46)
[2019-01-11] MEDS: IBUPROFEN 800 MG TAB PO SCH ×3 (08:46→20:39)
[2019-01-11] MEDS: FLUTICASONE 50MCG/SPRAY NASAL 16GM EA NOSTRIL SCH (08:56)
[2019-01-11] MEDS: methylPREDNISolone SOD SUCCI 125 MG/2 ML VIAL IV SCH (08:56)
[2019-01-11] MEDS: AZITHROMYCIN 500 MG TAB PO SCH (08:56)
[2019-01-11] MEDS: LOSARTAN 25 MG TAB PO SCH (08:56)
[2019-01-11] MEDS: ATORVASTATIN 10 MG TAB PO SCH (08:56)
[2019-01-11] MEDS: HYDROcodone/APAP 5-325MG 1 EACH TAB PO PRN ×2 (11:13→23:21)
--- NOTE | 2019-01-11 11:39 | P.PN ---
Subjective Progress Note Date: 01/11/19 Principal diagnosis: Acute on chronic hypoxic respiratory failure, idiopathic pulmonary fibrosis, leukocytosis, right neck mass, high-grade neuroendocrine tumor, hypertension hypertensive cardiovascular disease, dyslipidemia 01/11/2019, patient seen and evaluated examined during the rounds patient remains on supplemental oxygen with stable shortness of breath cough is better breathing relatively more easily, white cell count noted up to 33,000, likely related to steroids can lower down the steroids 01/10/2019, patient seen and evaluated examined while covering for Dr. Shashi England, patient is resting on supplemental oxygen, computed tomography scan reviewed labs reviewed remains on IV antibiotics and IV steroids along with bronchodilator, patient has idiopathic pulmonary fibrosis with history of recent neuroendocrine tumor presenting as a neck mass has been on antibiotics and breathing treatment Objective - Vital Signs Vital signs: Vital Signs Temp 97.8 F 01/11/19 08:00 Pulse 80 01/11/19 08:00 Resp 22 01/11/19 08:00 BP 103/64 01/11/19 08:00 Pulse Ox 91 L 01/11/19 08:00 Intake & Output 01/10/19 01/11/19 01/11/19 18:59 06:59 18:59 Intake Total 1920 100 360 Output Total 1350 Balance 1920 -1250 360 Weight 112 kg Intake: Intake, IV Titration 600 100 Amount cefTRIAXone 1 gm In 600 100 Sodium Chloride 0.9% 50 ml @ 100 mls/hr IVPB Q12HR [facility] Rx#:[id number] Oral 1320 360 Output: Urine 1350 Other: # Voids 2 2 # Bowel Movements 0 - Exam GENERAL EXAM: Pleasant 63-year-old gentleman. Alert, fairly comfortable in no apparent distress. On 5 L/m per nasal cannula. HEAD: Normocephalic. EYES: Normal reaction of pupils, equal size. NOSE: Clear with pink turbinates. THROAT: No erythema or exudates. NECK: No masses, no JVD. CHEST: No chest wall deformity. LUNGS: Equal air entry with coarse crackles in the bilateral posterior bases. CVS: S1 and S2 normal with no audible murmur, regular rhythm. ABDOMEN: No hepatosplenomegaly, normal bowel sounds, no guarding or rigidity. SPINE: No scoliosis or deformity SKIN: No rashes CENTRAL NERVOUS SYSTEM: No focal deficits, tone is normal in all 4 extremities. EXTREMITIES: There is no peripheral edema. No clubbing, no cyanosis. Peripheral pulses are intact. - Labs CBC & Chem 7: 01/10/19 06:24 01/10/19 06:24 Labs: Abnormal Lab Results - Last 24 Hours (Table) 01/10/19 01/10/19 01/10/19 Range/Units 11:41 17:02 20:23 POC Glucose (mg/dL) 165 H 169 H 223 H (75-99) mg/dL 01/11/19 Range/Units 06:23 POC Glucose (mg/dL) 112 H (75-99) mg/dL Microbiology - Last 24 Hours (Table) 01/08/19 14:50 Blood Culture - Preliminary Blood No Growth after 48 hours Assessment and Plan Assessment: Acute on chronic hypoxic respiratory failure due to IPF IPF Pneumonia High-grade neuroendocrine cancer Hypertension Dyslipidemia Plan: Bronchodilator Antibiotic IV steroids will start tapering it down Continue oxygen 5 L of cannula to keep maintain saturation over 88 to 90% Further recommendations pending plan of care as per clinical response of patient Time with Patient: Greater than 30
[2019-01-11 11:56] LABS: Glucose,Whole Blood 137 mg/dL (75-99)
--- NOTE | 2019-01-11 16:02 | PN ---
PROGRESS NOTE DATE OF SERVICE: 01/11/2019 This is a 63-year-old male who I saw in consultation. He has a history of acute on chronic hypoxemic respiratory failure secondary to biopsy-proven idiopathic pulmonary fibrosis. The patient also suffers from a history of a right neck mass which was biopsied and showed metastatic high-grade neuroendocrine carcinoma. He is receiving chemotherapy for that. Finally, he has a history of benign essential hypertension and hyperlipidemia. The patient was initially seen by me I believe and we had a biopsy in this area and then he ended up seeing one of the pulmonary physicians at the [facility]. He has not been back to us for some time, although he does see Dr. Newman from time to time. He is on a small dose of prednisone and also on Esbriet for his pulmonary fibrosis. Today he is feeling a bit better. Less short of breath. Still coughing. Producing lots of phlegm and mucus. No fever or chills. No nausea, vomiting or diarrhea. Not coughing up any blood. He has a number of questions today and I answered them all. PHYSICAL EXAMINATION: Current vital signs are reviewed. Temperature 97.7, heart rate 68, respiratory rate 24, blood pressure 140/71, mean 94, 5 L saturation is 90%. Appears mildly tachypneic. His chest sounds congested audibly in the room. The patient does have some mild conversational dyspnea. No use of accessory muscles. No audible wheezing. HEENT examination is grossly unremarkable. Nasal O2 is noted. NECK: Supple. Full range of motion. No adenopathy or thyromegaly. Neck veins are flat. CARDIOVASCULAR examination reveals regular rhythm and rate. Heart rate 64. S1, S2 normal. There is no murmur. LUNGS: Reveal coarse inspiratory and expiratory rhonchi and wheezes. There are some bibasilar crackles. He is restricted in his breathing. Breath sounds are equal bilaterally. ABDOMEN: Soft. Bowel sounds are heard. EXTREMITIES: Intact without cyanosis, clubbing, or significant edema. SKIN: Without rash. NEUROLOGIC examination is brief but nonfocal. LABS: Reviewed. Nothing new from today. No new chest x-rays to report. Medications are reviewed. From the pulmonary standpoint, he is on albuterol and Atrovent updrafts, Zithromax, Symbicort, Rocephin, and Solu-Medrol 40 mg q.12h. ASSESSMENT: 1. Acute on chronic hypoxemic respiratory failure secondary to biopsy-proven idiopathic pulmonary fibrosis. An acute pneumonic process cannot be excluded. 2. Right neck mass, status post biopsy, positive for metastatic high-grade neuroendocrine carcinoma, currently receiving chemotherapy. 3. History of hypertension. 4. History of hyperlipidemia. 5. History of degenerative joint disease. PLAN: The patient seems to be doing a bit better. A bit less short of breath than before. He still has got some significant chest congestion. I do go back and more recent x-ray was one done in May. There appears to be no progression of disease. The patient will follow up with Dr. Newman. No additional recommendations are made. Prognosis is guarded. MMODL / IJN: [id number] /
[2019-01-11 17:09] LABS: Glucose,Whole Blood 171 mg/dL (75-99)
[2019-01-11] MEDS: methylPREDNISolone SOD SUCCI 40 MG/ML 1 ML VIAL IV SCH (20:39)
[2019-01-11 21:13] LABS: Glucose,Whole Blood 123 mg/dL (75-99)
[2019-01-12 06:14] LABS: Glucose,Whole Blood 111 mg/dL (75-99)
[2019-01-12] MEDS: INSULIN ASPART (NovoLOG) 100 UNIT/ML VIAL SQ SCH ×4 (06:16→21:28)
[2019-01-12] MEDS: SYMBICORT 160-4.5 MCG INHALER INHALATION SCH ×2 (07:52→19:34)
[2019-01-12] MEDS: IBUPROFEN 800 MG TAB PO SCH ×3 (08:44→22:52)
[2019-01-12] MEDS: PIRFENIDONE PO SCH (08:45)
[2019-01-12] MEDS: FLUTICASONE 50MCG/SPRAY NASAL 16GM EA NOSTRIL SCH (08:51)
[2019-01-12] MEDS: methylPREDNISolone SOD SUCCI 40 MG/ML 1 ML VIAL IV SCH ×2 (08:51→21:39)
[2019-01-12] MEDS: ATORVASTATIN 10 MG TAB PO SCH (08:52)
[2019-01-12] MEDS: LOSARTAN 25 MG TAB PO SCH (08:52)
[2019-01-12] MEDS: AZITHROMYCIN 500 MG TAB PO SCH (08:52)
[2019-01-12] MEDS: IPRATROPIUM-ALBUTEROL 3 ML NEB INHALATION PRN ×2 (10:40→19:35)
[2019-01-12 11:49] LABS: Glucose,Whole Blood 100 mg/dL (75-99)
[2019-01-12] MEDS: HYDROcodone/APAP 5-325MG 1 EACH TAB PO PRN ×2 (12:21→22:56)
[2019-01-12 16:55] LABS: Glucose,Whole Blood 194 mg/dL (75-99)
--- NOTE | 2019-01-12 17:02 | P.PN ---
Subjective Progress Note Date: 01/12/19 Principal diagnosis: Acute on chronic hypoxic rest or a failure secondary to biopsy proven idiopathic pulmonary fibrosis Patient is seen today 01/10/2019 in follow-up on the selective care unit. Currently resting comfortably in bed. Breathing a bit easier today as compared to yesterday. Still dyspneic on minimal exertion. Still with O2 saturations in the high 80s low 90s on 5 L/m per nasal cannula. He is currently afebrile. Blood culture reveals no growth to date. White count 33.4. Hemoglobin 10.8. Creatinine 0.60. He remains on DuoNeb inhalations, Symbicort, IV Solu-Medrol. Antibiotics in the form of ceftriaxone and azithromycin. CT angiogram ruled out pulmonary embolism. There is noticed extensive pulmonary fibrosis and/or emphysematous changes in the lung cui. Pulmonary hypertension. He is on Esbriet. On 01/12/2018 patient seen in follow-up on selective care unit, he is awake and alert, in no acute distress, currently FiO2 at 5 L/m, and his pulse ox is 89- 91%, afebrile, hemodynamically stable, as did dyspneic at rest, and especially with exertion, but no worsening dyspnea. no Fever or chills, patient is on antibiotics and IV steroids along with bronchodilators. Computed tomography scan was reviewed, revealing extensive pulmonary fibrosis and/or emphysematous changes within the lung cui. No new labs today. Blood culture showed no growth. Is on accommodation of Zithromax and Rocephin, IV steroids at 40 mg every 12 hours, and nebulized bronchodilators. Continues on his home dose of Esbriet Objective - Vital Signs Vital signs: Vital Signs Temp 97.6 F 01/12/19 16:00 Pulse 63 01/12/19 16:00 Resp 20 01/12/19 16:00 BP 121/60 01/12/19 16:00 Pulse Ox 89 L 01/12/19 16:00 Intake & Output 01/11/19 01/12/19 01/12/19 18:59 06:59 18:59 Intake Total 794 279 0340 Output Total 240 900 Balance 720 -610 1200 Intake: Intake, IV Titration 50 Amount cefTRIAXone 1 gm In 50 Sodium Chloride 0.9% 50 ml @ 100 mls/hr IVPB Q12HR [facility] Rx#:[id number] Oral 928 455 3010 Output: Urine 240 900 Other: # Voids 1 2 - Exam GENERAL EXAM: Alert, pleasant, 63-year-old white male, on 5 L of oxygen, with a pulse ox of 89-91% comfortable in no apparent distress. HEAD: Normocephalic/atraumatic. EYES: Normal reaction of pupils, equal size. Conjunctiva pink, sclera white. NOSE: Clear with pink turbinates. THROAT: No erythema or exudates. NECK: No masses, no JVD, no thyroid enlargement, no adenopathy. CHEST: No chest wall deformity. Symmetrical expansion. LUNGS: Equal air entry with coarse crackles in bilateral posterior bases CVS: Regular rate and rhythm, normal S1 and S2, no gallops, no murmurs, no rubs ABDOMEN: Soft, nontender. No hepatosplenomegaly, normal bowel sounds, no guarding or rigidity. EXTREMITIES: No clubbing, no edema, no cyanosis, 2+ pulses and upper and lower extremities. MUSCULOSKELETAL: Muscle strength and tone normal. SPINE: No scoliosis or deformity SKIN: No rashes CENTRAL NERVOUS SYSTEM: Alert and oriented -3. No focal deficits, tone is normal in all 4 extremities. PSYCHIATRIC: Alert and oriented -3. Appropriate affect. Intact judgment and insight. - Labs CBC & Chem 7: 01/10/19 06:24 01/10/19 06:24 Labs: Abnormal Lab Results - Last 24 Hours (Table) 01/11/19 01/11/19 01/12/19 Range/Units 16:55 21:12 06:13 POC Glucose (mg/dL) 171 H 123 H 111 H (75-99) mg/dL 01/12/19 01/12/19 Range/Units 11:45 16:49 POC Glucose (mg/dL) 100 H 194 H (75-99) mg/dL Microbiology - Last 24 Hours (Table) 01/08/19 14:50 Blood Culture - Preliminary Blood No Growth after 72 hours Assessment and Plan Plan: #1 Acute on chronic hypoxic respiratory failure secondary to biopsy-proven idiopathic pulmonary fibrosis. Cannot rule out underlying pneumonic process. #2 Leukocytosis secondary to above. 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 FNA 08/19/2018. Receiving chemotherapy. #4 Hypertension. #5 Hyperlipidemia. Plan: We'll continue current antibiotic coverage, nebulized without his, and IV steroids, patient is doing better, vital signs are stable, no fever or chills, blood culture showed no growth. Activity as tolerated, patient is improving, and possibly can be discharged home in the next 24 hours I performed a history & physical examination of the patient and discussed their management with my nurse practitioner, Analy Elias. I reviewed the nurse practitioner's note and agree with the documented findings and plan of care. Lung sounds are positive for some bibasilar crackles.. The findings and the impression was discussed with the patient. I attest to the documentation by the nurse practitioner. Time with Patient: Less than 30
[2019-01-12 20:47] LABS: Glucose,Whole Blood 89 mg/dL (75-99)
[2019-01-13 05:49] LABS: Glucose,Whole Blood 118 mg/dL (75-99)
[2019-01-13] MEDS: INSULIN ASPART (NovoLOG) 100 UNIT/ML VIAL SQ SCH ×4 (06:26→20:50)
[2019-01-13] MEDS: SYMBICORT 160-4.5 MCG INHALER INHALATION SCH ×2 (07:39→20:20)
[2019-01-13] MEDS: IPRATROPIUM-ALBUTEROL 3 ML NEB INHALATION PRN ×4 (07:39→20:20)
[2019-01-13] MEDS: PIRFENIDONE PO SCH (07:47)
[2019-01-13] MEDS: IBUPROFEN 800 MG TAB PO SCH ×3 (07:51→20:52)
[2019-01-13] MEDS: LOSARTAN 25 MG TAB PO SCH (07:53)
[2019-01-13] MEDS: methylPREDNISolone SOD SUCCI 40 MG/ML 1 ML VIAL IV SCH ×2 (07:53→21:13)
[2019-01-13] MEDS: ATORVASTATIN 10 MG TAB PO SCH (07:53)
[2019-01-13] MEDS: AZITHROMYCIN 500 MG TAB PO SCH (07:53)
[2019-01-13] MEDS: FLUTICASONE 50MCG/SPRAY NASAL 16GM EA NOSTRIL SCH (07:53)
[2019-01-13 08:01] LABS: Anisocytosis Moderate; HCT 41.5 % (39.0-53.0); HGB 12.6 gm/dL (13.0-17.5); Hypochromasia Moderate; MCH 33.9 pg (25.0-35.0); MCHC 30.3 g/dL (31.0-37.0); MCV 112.1 fL (80.0-100.0); Macrocytosis Marked; Mean Platelet Volume 7.6; RDW 22.9 % (11.5-15.5)
[2019-01-13 08:14] LABS: Platelet Count 456 k/uL (150-450)
[2019-01-13 08:20] LABS: African American GFR (CKD) >90 (>60 ml/min/1.73 sqM); Blood Urea Nitrogen 23 mg/dL (9-20); Calcium 9.6 mg/dL (8.4-10.2); Chloride 95 mmol/L (98-107); Glucose 116 mg/dL (74-99); Potassium 5.9 mmol/L (3.5-5.1); Sodium 141 mmol/L (137-145)
[2019-01-13 08:27] LABS: Anion Gap 5 mmol/L
[2019-01-13 08:45] LABS: Carbon Dioxide 41 mmol/L (22-30)
--- NOTE | 2019-01-13 09:38 | P.PN ---
Subjective Progress Note Date: 01/12/19 This is 63-year-old gentleman admitted with Acute on chronic hypoxic respiratory failure, idiopathic pulmonary fibrosis, leukocytosis, right neck mass, high- grade neuroendocrine tumor, hypertension hypertensive cardiovascular disease, dyslipidemia and multiple other medical issues. 01/12/2019 maintained on nebulized bronchodilators, IV steroids, antibiotics of Zithromax ,Rocephin,Esbriet( home med).Complaints of exertional shortness of breath as well as at rest, not quite back to baseline. maintaining O2 sats from 89-91% on 5 L nasal cannula. Afebrile. Blood cultures negative. Objective - Vital Signs Vital signs: Vital Signs Temp 97.6 F 01/12/19 16:00 Pulse 63 01/12/19 16:00 Resp 20 01/12/19 16:00 BP 121/60 01/12/19 16:00 Pulse Ox 89 L 01/12/19 16:00 Intake & Output 01/11/19 01/12/19 01/12/19 18:59 06:59 18:59 Intake Total 159 355 4310 Output Total 240 900 Balance 720 -610 1200 Intake: Intake, IV Titration 50 Amount cefTRIAXone 1 gm In 50 Sodium Chloride 0.9% 50 ml @ 100 mls/hr IVPB Q12HR [facility] Rx#:[id number] Oral 217 [id number] Output: Urine 240 900 Other: # Voids 1 2 - Exam GENERAL EXAM: Alert and oriented 3, sitting up at side of bed. No acute distress. HEAD: Normocephalic. EYES: Normal reaction of pupils, equal size. NOSE: Clear with pink turbinates. THROAT: No erythema or exudates. Oral mucosa moist. NECK: No masses, no JVD. CHEST: No chest wall deformity. LUNGS: Equal air entry with coarse crackles in the bilateral posterior bases. CVS: S1 and S2 normal with no audible murmur, regular rhythm. ABDOMEN: Soft, nontender .No hepatosplenomegaly, normal bowel sounds, no guarding or rigidity. SPINE: No scoliosis or deformity SKIN: No lesions, no rashes CENTRAL NERVOUS SYSTEM: No focal deficits, tone is normal in all 4 extremities. EXTREMITIES: There is no peripheral edema. No clubbing, no cyanosis. Peripheral pulses are intact. Microbiology 01/08/19 14:50 Blood Blood Culture - Preliminary No Growth after 96 hours - Labs CBC & Chem 7: 06/11/19 07:05 01/13/19 07:05 Labs: Abnormal Lab Results - Last 24 Hours (Table) 01/11/19 01/12/19 01/12/19 Range/Units 21:12 06:13 11:45 POC Glucose (mg/dL) 123 H 111 H 100 H (75-99) mg/dL 01/12/19 Range/Units 16:49 POC Glucose (mg/dL) 194 H (75-99) mg/dL Microbiology - Last 24 Hours (Table) 01/08/19 14:50 Blood Culture - Preliminary Blood No Growth after 72 hours Assessment and Plan Assessment: Acute on chronic hypoxic respiratory failure due to IPF IPF Possible Pneumonia Right neck mass positive for High-grade neuroendocrine cancer, on chemotherapy Hypertension Dyslipidemia Plan: Continue current medication regime ,monitoring and symptomatic treatment. Maintain nebulized bronchodilators, IV steroids, antibiotics. Increase activity as tolerated. Discharge planning in progress for tomorrow pending pulmonary clearance. The impression and plan of care has been dictated as directed. : I performed a history and examination of this patient, discussed the same with the dictator. I agree with the dictator's note ,documented as a scribe. Any additional findings or plans will be noted.
[2019-01-13] MEDS ORDERED: SODIUM POLYSTYRENE SULFONATE 15 GM/60 ML BOTTLE PO STA (10:34)
[2019-01-13 10:42] LABS: Band Neutrophils % 1 %; Metamyelocytes % 1 %; Myelocytes % 2 %; Neutrophils % (M) 88 %; Nucleated Red Blood Cells 1 /100 WBC (0-0); Total Cells Counted 200
[2019-01-13] MEDS: HYDROcodone/APAP 5-325MG 1 EACH TAB PO PRN ×2 (11:18→22:12)
[2019-01-13 12:21] LABS: Glucose,Whole Blood 95 mg/dL (75-99)
--- NOTE | 2019-01-13 13:14 | P.PN ---
Subjective Progress Note Date: 01/13/19 Principal diagnosis: Acute on chronic hypoxic respiratory failure secondary to biopsy-proven idiopathic pulmonary fibrosis The patient is seen today January 13, 2019 in follow-up on the selective care unit. He remains awake and alert in no acute distress. He is breathing a bit easier today as compared to yesterday. Maintaining O2 saturations in the low 90s on 5 L/m per nasal cannula. His been afebrile. Blood cultures reveal no growth. White count 30.0. Hemoglobin 12.6. Bicarb 41. Creatinine 0.78. Objective - Vital Signs Vital signs: Vital Signs Temp 97.5 F L 01/13/19 12:00 Pulse 100 01/13/19 12:59 Resp 20 01/13/19 12:00 BP 122/67 01/13/19 12:00 Pulse Ox 93 L 01/13/19 12:00 Intake & Output 01/12/19 01/13/19 01/13/19 18:59 06:59 18:59 Intake Total 2280 200 Output Total 1150 300 Balance 2280 -1150 -100 Weight 69.2 kg Intake: Oral 2280 200 Output: Urine 1150 300 Other: # Voids 2 - Exam GENERAL EXAM: Pleasant 63-year-old gentleman. Alert, fairly comfortable in no apparent distress. On 5 L/m per nasal cannula. HEAD: Normocephalic. EYES: Normal reaction of pupils, equal size. NOSE: Clear with pink turbinates. THROAT: No erythema or exudates. NECK: No masses, no JVD. CHEST: No chest wall deformity. LUNGS: Equal air entry with coarse crackles in the bilateral posterior bases. CVS: S1 and S2 normal with no audible murmur, regular rhythm. ABDOMEN: No hepatosplenomegaly, normal bowel sounds, no guarding or rigidity. SPINE: No scoliosis or deformity SKIN: No rashes CENTRAL NERVOUS SYSTEM: No focal deficits, tone is normal in all 4 extremities. EXTREMITIES: There is no peripheral edema. No clubbing, no cyanosis. Peripheral pulses are intact. - Labs CBC & Chem 7: 01/13/19 07:05 01/13/19 07:05 Labs: Abnormal Lab Results - Last 24 Hours (Table) 01/12/19 01/13/19 01/13/19 Range/Units 16:49 05:47 07:05 WBC 30.0 H (3.8-10.6) k/uL RBC 3.70 L (4.30-5.90) m/uL Hgb 12.6 L (13.0-17.5) gm/dL MCV 112.1 H (80.0-100.0) fL MCHC 30.3 L (31.0-37.0) g/dL RDW 22.9 H (11.5-15.5) % Plt Count 456 H D (150-450) k/uL Neutrophils # (Manual) 26.70 H (1.3-7.7) k/uL Monocytes # (Manual) 1.20 H (0-1.0) k/uL Metamyelocytes # (Man) 0.30 H (0) k/uL Myelocytes # (Manual) 0.60 H (0) k/uL Nucleated RBCs 1 H (0-0) /100 WBC Macrocytosis Marked A Potassium (3.5-5.1) mmol/L Chloride (98-107) mmol/L Carbon Dioxide (22-30) mmol/L BUN (9-20) mg/dL Glucose (74-99) mg/dL POC Glucose (mg/dL) 194 H 118 H (75-99) mg/dL 01/13/19 Range/Units 07:05 WBC (3.8-10.6) k/uL RBC (4.30-5.90) m/uL Hgb (13.0-17.5) gm/dL MCV (80.0-100.0) fL MCHC (31.0-37.0) g/dL RDW (11.5-15.5) % Plt Count (150-450) k/uL Neutrophils # (Manual) (1.3-7.7) k/uL Monocytes # (Manual) (0-1.0) k/uL Metamyelocytes # (Man) (0) k/uL Myelocytes # (Manual) (0) k/uL Nucleated RBCs (0-0) /100 WBC Macrocytosis Potassium 5.9 H (3.5-5.1) mmol/L Chloride 95 L (98-107) mmol/L Carbon Dioxide 41 H* (22-30) mmol/L BUN 23 H (9-20) mg/dL Glucose 116 H (74-99) mg/dL POC Glucose (mg/dL) (75-99) mg/dL Microbiology - Last 24 Hours (Table) 01/08/19 14:50 Blood Culture - Preliminary Blood No Growth after 96 hours Assessment and Plan Assessment: Impression: #1 Acute on chronic hypoxic respiratory failure secondary to biopsy-proven idiopathic pulmonary fibrosis. Cannot rule out underlying pneumonic process. #2 Leukocytosis secondary to above. 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 FNA 08/19/2018. Receiving chemotherapy. #4 Hypertension. #5 Hyperlipidemia. The patient was seen and evaluated by Dr. Washington. We will continue the current treatment plan. Continue bronchodilators, convert to oral prednisone. Remains on ceftriaxone and azithromycin. We will continue to follow and make further recommendations based on his clinical status. I, the cosigning physician, performed a history & physical examination of the patient. Lungs sounds with coarse crackles in the bilateral posterior bases. Maintaining good O2 saturations in the 90s on 5 L/m per nasal cannula. I discussed the assessment and plan of care with my nurse practitioner, Beatriz Issa. I attest to the above note as dictated by her.
[2019-01-13 16:58] LABS: Glucose,Whole Blood 138 mg/dL (75-99)
--- NOTE | 2019-01-13 17:07 | P.PN ---
Subjective Progress Note Date: 01/13/19 This is 63-year-old gentleman admitted with Acute on chronic hypoxic respiratory failure, idiopathic pulmonary fibrosis, leukocytosis, right neck mass, high- grade neuroendocrine tumor, hypertension hypertensive cardiovascular disease, dyslipidemia and multiple other medical issues. 01/12/2019 maintained on nebulized bronchodilators, IV steroids, antibiotics of Zithromax ,Rocephin,Esbriet( home med).Complaints of exertional shortness of breath as well as at rest, not quite back to baseline. maintaining O2 sats from 89-91% on 5 L nasal cannula. Afebrile. Blood cultures negative. 01/13/2019 Breathing improving, maintaining O2 sats in the mid 90s on 5 L nasal cannula. Afebrile. Patient expressing that he has major difficulties ambulating and is interested in holding off on chemo and proceeding with subacute rehab for a couple weeks. Potassium 5.9 , received Kayexalate, potassium now down to 4.7. Objective - Vital Signs Vital signs: Vital Signs Temp 97.1 F L 01/13/19 16:00 Pulse 92 01/13/19 16:44 Resp 20 01/13/19 16:00 BP 112/66 01/13/19 16:00 Pulse Ox 95 01/13/19 16:00 Intake & Output 01/12/19 01/13/19 01/13/19 18:59 06:59 18:59 Intake Total 2280 250 Output Total 1150 300 Balance 2280 -1150 -50 Weight 69.2 kg Intake: Intake, IV Titration 50 Amount cefTRIAXone 1 gm In 50 Sodium Chloride 0.9% 50 ml @ 100 mls/hr IVPB Q12HR [facility] Rx#:[id number] Oral 2280 200 Output: Urine 1150 300 Other: # Voids 2 2 - Exam GENERAL EXAM: Alert and oriented 3, sitting up at side of bed. No acute distress. HEAD: Normocephalic. EYES: Normal reaction of pupils, equal size. NOSE: Clear with pink turbinates. THROAT: No erythema or exudates. Oral mucosa moist. NECK: No masses, no JVD. CHEST: No chest wall deformity. LUNGS: Equal air entry with coarse crackles in the bilateral posterior bases. CVS: S1 and S2 normal with no audible murmur, regular rhythm. ABDOMEN: Soft, nontender .No hepatosplenomegaly, normal bowel sounds, no guarding or rigidity. SPINE: No scoliosis or deformity SKIN: No lesions, no rashes CENTRAL NERVOUS SYSTEM: No focal deficits, tone is normal in all 4 extremities. EXTREMITIES: There is no peripheral edema. No clubbing, no cyanosis. Peripheral pulses are intact. Microbiology 01/08/19 14:50 Blood Blood Culture - Preliminary No Growth after 96 hours - Labs CBC & Chem 7: 01/13/19 07:05 01/13/19 15:43 Labs: Abnormal Lab Results - Last 24 Hours (Table) 01/13/19 01/13/19 01/13/19 Range/Units 05:47 07:05 07:05 WBC 30.0 H (3.8-10.6) k/uL RBC 3.70 L (4.30-5.90) m/uL Hgb 12.6 L (13.0-17.5) gm/dL MCV 112.1 H (80.0-100.0) fL MCHC 30.3 L (31.0-37.0) g/dL RDW 22.9 H (11.5-15.5) % Plt Count 456 H D (150-450) k/uL Neutrophils # (Manual) 26.70 H (1.3-7.7) k/uL Monocytes # (Manual) 1.20 H (0-1.0) k/uL Metamyelocytes # (Man) 0.30 H (0) k/uL Myelocytes # (Manual) 0.60 H (0) k/uL Nucleated RBCs 1 H (0-0) /100 WBC Macrocytosis Marked A Potassium 5.9 H (3.5-5.1) mmol/L Chloride 95 L (98-107) mmol/L Carbon Dioxide 41 H* (22-30) mmol/L BUN 23 H (9-20) mg/dL Glucose 116 H (74-99) mg/dL POC Glucose (mg/dL) 118 H (75-99) mg/dL 01/13/19 Range/Units 16:54 WBC (3.8-10.6) k/uL RBC (4.30-5.90) m/uL Hgb (13.0-17.5) gm/dL MCV (80.0-100.0) fL MCHC (31.0-37.0) g/dL RDW (11.5-15.5) % Plt Count (150-450) k/uL Neutrophils # (Manual) (1.3-7.7) k/uL Monocytes # (Manual) (0-1.0) k/uL Metamyelocytes # (Man) (0) k/uL Myelocytes # (Manual) (0) k/uL Nucleated RBCs (0-0) /100 WBC Macrocytosis Potassium (3.5-5.1) mmol/L Chloride (98-107) mmol/L Carbon Dioxide (22-30) mmol/L BUN (9-20) mg/dL Glucose (74-99) mg/dL POC Glucose (mg/dL) 138 H (75-99) mg/dL Microbiology - Last 24 Hours (Table) 01/08/19 14:50 Blood Culture - Preliminary Blood No Growth after 96 hours Assessment and Plan Assessment: Acute on chronic hypoxic respiratory failure due to IPF IPF Possible Pneumonia Right neck mass positive for High-grade neuroendocrine cancer, on chemotherapy Hypertension Dyslipidemia Hyperkalemia Plan: Continue current medication regime ,monitoring and symptomatic treatment. Kayexalate ordered, Cozaar discontinued secondary to hyperkalemia.close monitoring of electrolytes with repeat labs ordered for a.m. Maintain nebulized bronchodilators, steroids, antibiotics. PT OT. Oncology notified of/consulted to discuss chemo options as patient would like to currently proceed with subacute rehab. Preauthorization initiated. Discharge planning in progress. The impression and plan of care has been dictated as directed. : I performed a history and examination of this patient, discussed the same with the dictator. I agree with the dictator's note ,documented as a scribe. Any additional findings or plans will be noted.
[2019-01-13 20:40] LABS: Glucose,Whole Blood 107 mg/dL (75-99)
[2019-01-14 05:39] LABS: Glucose,Whole Blood 125 mg/dL (75-99)
[2019-01-14] MEDS: INSULIN ASPART (NovoLOG) 100 UNIT/ML VIAL SQ SCH ×2 (05:42→12:27)
[2019-01-14] MEDS: SYMBICORT 160-4.5 MCG INHALER INHALATION SCH (08:09)
[2019-01-14] MEDS: IPRATROPIUM-ALBUTEROL 3 ML NEB INHALATION PRN ×3 (08:09→15:02)
[2019-01-14] MEDS: FLUTICASONE 50MCG/SPRAY NASAL 16GM EA NOSTRIL SCH (09:53)
[2019-01-14] MEDS: AZITHROMYCIN 500 MG TAB PO SCH (09:54)
[2019-01-14] MEDS: methylPREDNISolone SOD SUCCI 40 MG/ML 1 ML VIAL IV SCH (09:54)
[2019-01-14] MEDS: IBUPROFEN 800 MG TAB PO SCH (09:54)
[2019-01-14] MEDS: ATORVASTATIN 10 MG TAB PO SCH (09:55)
[2019-01-14] MEDS: HYDROcodone/APAP 5-325MG 1 EACH TAB PO PRN (09:58)
[2019-01-14 12:02] LABS: Glucose,Whole Blood 94 mg/dL (75-99)
[2019-01-14 14:40] VITALS: BP 123/79; TEMP 98
[2019-01-14 15:04] VITALS: RESP 24
[2019-01-14 15:21] VITALS: PULSE 98
--- NOTE | 2019-01-14 15:38 | P.PN ---
Subjective Progress Note Date: 01/14/19 Principal diagnosis: Acute on chronic hypoxic rest or a failure secondary to biopsy proven idiopathic pulmonary fibrosis Patient is seen today 01/10/2019 in follow-up on the selective care unit. Currently resting comfortably in bed. Breathing a bit easier today as compared to yesterday. Still dyspneic on minimal exertion. Still with O2 saturations in the high 80s low 90s on 5 L/m per nasal cannula. He is currently afebrile. Blood culture reveals no growth to date. White count 33.4. Hemoglobin 10.8. Creatinine 0.60. He remains on DuoNeb inhalations, Symbicort, IV Solu-Medrol. Antibiotics in the form of ceftriaxone and azithromycin. CT angiogram ruled out pulmonary embolism. There is noticed extensive pulmonary fibrosis and/or emphysematous changes in the lung cui. Pulmonary hypertension. He is on Esbriet. On 01/12/2018 patient seen in follow-up on [facility] care unit, he is awake and alert, in no acute distress, currently FiO2 at 5 L/m, and his pulse ox is 89- 91%, afebrile, hemodynamically stable, as did dyspneic at rest, and especially with exertion, but no worsening dyspnea. no Fever or chills, patient is on antibiotics and IV steroids along with bronchodilators. Computed tomography scan was reviewed, revealing extensive pulmonary fibrosis and/or emphysematous changes within the lung cui. No new labs today. Blood culture showed no growth. Is on accommodation of Zithromax and Rocephin, IV steroids at 40 mg every 12 hours, and nebulized bronchodilators. Continues on his home dose of Esbriet On 01/14/2019 patient seen in follow-up on [facility] care unit, his sedimentation bed, in no acute distress, he is currently on 5 L of oxygen, but with a pulse ox of 92%, apparently this desaturate to 75% with walking, but recovers. Patient does wear 5 L of oxygen at home. Afebrile, hemodynamically stable, his breathing is improving, fever or chills, vital signs are stable, blood culture showed no growth. Lung sounds reveal only a few scattered rales at right lower base, no rhonchi, no wheezing, she has been treated with a com bination of Zithromax and Rocephin, IV steroids, nebulized bronchodilators and Symbicort, he is improving. Initially an attempt was made to send the patient to rehab, however patient states his son and [id number] are moving in, and he is could have more help available at home, and he would like to go home is set of rehab with home care. Objective - Vital Signs Vital signs: Vital Signs Temp 98.0 F 01/14/19 11:30 Pulse 98 01/14/19 15:19 Resp 24 01/14/19 15:03 BP 123/79 01/14/19 11:30 Pulse Ox 92 L 01/14/19 15:03 Intake & Output 01/13/19 01/14/19 01/14/19 18:59 06:59 18:59 Intake Total 690 Output Total 600 1525 Balance 90 -1525 Weight 71 kg 71 kg Intake: Intake, IV Titration 50 Amount cefTRIAXone 1 gm In 50 Sodium Chloride 0.9% 50 ml @ 100 mls/hr IVPB Q12HR [facility] Rx#:[id number] Oral 640 Output: Urine 600 1525 Other: Voiding Method Urinal # Voids 2 - Exam GENERAL EXAM: Alert, pleasant, 63-year-old white male, on 5 L of oxygen, with a pulse ox of 92% comfortable in no apparent distress. HEAD: Normocephalic/atraumatic. EYES: Normal reaction of pupils, equal size. Conjunctiva pink, sclera white. NOSE: Clear with pink turbinates. THROAT: No erythema or exudates. NECK: No masses, no JVD, no thyroid enlargement, no adenopathy. CHEST: No chest wall deformity. Symmetrical expansion. LUNGS: Equal air entry with coarse crackles in bilateral posterior bases CVS: Regular rate and rhythm, normal S1 and S2, no gallops, no murmurs, no rubs ABDOMEN: Soft, nontender. No hepatosplenomegaly, normal bowel sounds, no guarding or rigidity. EXTREMITIES: No clubbing, no edema, no cyanosis, 2+ pulses and upper and lower extremities. MUSCULOSKELETAL: Muscle strength and tone normal. SPINE: No scoliosis or deformity SKIN: No rashes CENTRAL NERVOUS SYSTEM: Alert and oriented -3. No focal deficits, tone is normal in all 4 extremities. PSYCHIATRIC: Alert and oriented -3. Appropriate affect. Intact judgment and insight. - Labs CBC & Chem 7: 01/13/19 07:05 01/13/19 15:43 Labs: Abnormal Lab Results - Last 24 Hours (Table) 01/13/19 01/13/19 01/14/19 Range/Units 16:54 20:35 05:37 POC Glucose (mg/dL) 138 H 107 H 125 H (75-99) mg/dL Microbiology - Last 24 Hours (Table) 01/08/19 14:50 Blood Culture - Preliminary Blood No Growth after 120 hours Assessment and Plan Plan: #1 Acute on chronic hypoxic respiratory failure secondary to biopsy-proven idiopathic pulmonary fibrosis. Cannot rule out underlying pneumonic process. #2 Leukocytosis secondary to above. 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 FNA 08/19/2018. Receiving chemotherapy. #4 Hypertension. #5 Hyperlipidemia. Plan: Patient is stable for discharge home today on outpatient course of oral antibiotics, prednisone taper, patient has home oxygen, he can continue on his Symbicort, and Esbriet. Patient states he is can have more support at home, and he prefers to go home with home care. From pulmonary perspective patient is stable for discharge home with home care as well as there is enough support available for him. Will need follow-up with Dr. Garrett in the office in 7-10 days. I performed a history & physical examination of the patient and discussed their management with my nurse practitioner, Analy Elias. I reviewed the nurse practitioner's note and agree with the documented findings and plan of care. Lung sounds are positive for some bibasilar crackles.. The findings and the impression was discussed with the patient. I attest to the documentation by the nurse practitioner. Time with Patient: Less than 30
[2019-01-14] MEDS: PIRFENIDONE PO SCH (16:32)
--- NOTE | 2019-01-14 20:47 | P.CONS ---
History of Present Illness - Reason for Consult Consult date: 01/14/19 Neuroendocrine ca on chemo, Resp failure - History of Present Illness The patient is a 63-year-old white male, well known to our service. He has multiple medical issues, including long-standing history of chronic respiratory failure due to adenopathic primary fibrosis and COPD. The patient was diagnosed with high-grade neuroendocrine tumor in 08/23. He had presented with a right neck mass and had an FNA that was positive for the same. The mass appeared to represent posterior cervical lymph nodes. Agent had additional workup with CT chest abdomen and pelvis, and subsequently PET scan. Is confirmed the presence of mildly enlarged posterior cervical nodes, positive on PET, though with overall low SUV value. Also appeared to be possible metastatic lesions in the liver though the uptake was not very strong. No other areas of uptake were seen. Therefore there did not appear to be definite primary. The patient was seen by Dr. Morse and started on standard chemotherapy for high-grade neuroendocrine tumor, specifically [employer]-16 and carboplatin. Interestingly, he states that even prior to starting chemotherapy the right neck mass had almost resolved. He is status post 3 cycles, with the most recent 3 weeks ago. In fact he was supposed to have the fourth and last planned cycle starting 01/13/19. He has also been receiving Neulasta support The patient was admitted this time with increasing shortness of breath, which is felt to be due to superimposed pneumonia COPD exacerbation, on his known bony fibrosis. He improved with aggressive treatment, but did become somewhat debilitated. The plan at this time is likely ECF transfer. consult was placed regarding treatment plans going forward. Review of Systems Constitutional: Reports fatigue, Reports poor appetite, Reports weakness Eyes: denies blurred vision, denies pain Ears: deny: decreased hearing, ear discharge, earache, tinnitus Ears, nose, mouth and throat: Denies headache, Denies sore throat Cardiovascular: Reports shortness of breath Respiratory: Reports cough, Reports dyspnea, Reports home oxygen Gastrointestinal: Denies abdominal pain, Denies diarrhea, Denies nausea, Denies vomiting Musculoskeletal: Reports muscle weakness Integumentary: Denies pruritus, Denies rash Neurological: Reports weakness Psychiatric: Reports anxiety Endocrine: Reports fatigue, Reports weight change Hematologic/Lymphatic: Reports as per HPI Past Medical History Past Medical History: Cancer, Hyperlipidemia, Hypertension, Pneumonia Additional Past Medical History / Comment(s): lung fibrosis, small cell carcinoma left neck, skin cancer one ear with removal, had chemo last week (past 7 days) History of Any Multi-Drug Resistant Organisms: None Reported Past Surgical History: Appendectomy Past Anesthesia/Blood Transfusion Reactions: No Reported Reaction Past Psychological History: No Psychological Hx Reported Smoking Status: Never smoker Past Alcohol Use History: None Reported Past Drug Use History: None Reported - Past Family History Father Family Medical History: Myocardial Infarction ([place]) Mother Family Medical History: No Reported History Medications and Allergies Home Medications Medication Instructions Recorded Confirmed Type Atorvastatin [Lipitor] 10 mg PO DAILY 01/08/19 01/08/19 History Fluticasone Nasal [place] [Flonase 2 spray EA NOSTRIL DAILY 01/08/19 01/08/19 History Nasal [place]] HYDROcodone/APAP 5-325MG [[place] 1 tab PO BID PRN 01/08/19 01/08/19 History 5-325] Ibuprofen [Motrin] 800 mg PO TID 01/08/19 01/08/19 History Ondansetron [Zofran] 4 mg PO Q6HR PRN 01/08/19 01/08/19 History Pirfenidone [Esbriet] 3 tab PO DAILY 01/08/19 01/08/19 History Budesonide-Formot 160-4.5 Mcg 2 puff INHALATION RT-BID #1 inh 01/13/19 Rx [Symbicort 160-4.5 Mcg Inhaler] predniSONE 1 - 2 tab PO DAILY #0 01/13/19 01/08/19 Rx predniSONE 10 mg PO DIRECTED #27 tab 01/13/19 Rx Cefuroxime Axetil [Ceftin] 500 mg PO BID #14 tab 01/14/19 Rx Ipratropium-Albuterol Nebulize 3 ml INHALATION QID #120 ampul.neb 01/14/19 Rx [Duoneb 0.5 mg-3 mg/3 ml Soln] Allergies Allergy/AdvReac Type Severity Reaction Status Date / Time No Known Allergies Allergy Verified 01/08/19 15:03 Physical Exam Vitals: Vital Signs Temp Pulse Pulse Pulse Resp BP BP 01/14/19 15:19 98 01/14/19 15:03 102 H 24 01/14/19 11:45 96 01/14/19 11:30 98.0 F 98 18 123/79 01/14/19 11:28 96 01/14/19 08:30 96 01/14/19 08:09 92 01/14/19 08:00 99 18 01/14/19 07:00 97.7 F 99 18 100/73 01/14/19 04:00 92 20 115/70 01/14/19 00:00 97.8 F 98 20 113/72 01/13/19 20:32 90 01/13/19 20:22 90 Pulse Ox 01/14/19 15:19 01/14/19 15:03 92 L 01/14/19 11:45 01/14/19 11:30 92 L 01/14/19 11:28 01/14/19 08:30 01/14/19 08:09 01/14/19 08:00 01/14/19 07:00 93 L 01/14/19 04:00 95 01/14/19 00:00 98 01/13/19 20:32 01/13/19 20:22 Intake and Output 01/14/19 01/14/19 01/14/19 06:59 14:59 22:59 Intake Total 720 Output Total 800 600 Balance -800 720 -600 Intake: Oral 720 Output: Urine 800 600 Other: Voiding Method Urinal Weight 71 kg 71 kg - Constitutional General appearance: no acute distress - EENT Eyes: EOMI, PERRLA ENT: hearing grossly normal, normal oropharynx - Neck Neck: no lymphadenopathy - Respiratory Respiratory: bilateral: diminished, rales, prolonged expiration - Cardiovascular Rhythm: regular Heart sounds: normal: S1, S2 - Gastrointestinal General gastrointestinal: normal bowel sounds, soft - Integumentary Integumentary: normal - Neurologic Neurologic: CNII-XII intact - Musculoskeletal Musculoskeletal: generalized weakness, strength equal bilaterally - Psychiatric Psychiatric: A&O x's 3, appropriate affect Results CBC & Chem 7: 01/13/19 07:05 01/13/19 15:43 Labs: Abnormal Lab Results - Last 24 Hours (Table) 01/13/19 01/14/19 Range/Units 20:35 05:37 POC Glucose (mg/dL) 107 H 125 H (75-99) mg/dL Microbiology - Last 24 Hours (Table) 01/08/19 14:50 Blood Culture - Final Blood No Growth after 144 hours Chest x-ray: report reviewed CT scan - chest: report reviewed Assessment and Plan (1) Neuroendocrine cancer Narrative/Plan: Diagnostic and therapeutic circumstances as described. The patient was supposed to start his last cycle of chemotherapy on 01/13/19. Consult was placed regarding chemotherapy management, in view of his recent illness, and current debility. At that time it is felt that the patient would benefit from subacute rehabilitation. It was discussed with him that he would not be able to receive chemotherapy in an ECF. Actually at this time the patient 's performance status is too poor to start back on treatment. In addition, he himself does not want to resume treatment on tenderness performance status improves, as he had tolerance issues with prior treatments also. In addition he wants to have restaging scans prior to his next treatment, as his palpable lesion has resolved and he would like to discuss not having cycle 4 if he has GENE. Therefore it was decided at this time that we will hold cycle 4. Oncology nursing in the office were informed of the same. Okay from our standpoint for the patient to go to [facility] if that is felt to be appropriate by the admitting service and other consultants. In the patient is okay to be discharged from [facility], he will contact the office. At that time repeat imaging will be set up, followed by an office visit to discuss results and additional treatment Status: Acute Code(s): C7A.8 - OTHER MALIGNANT NEUROENDOCRINE TUMORS SNOMED Code(s): 943686773819906 (2) Respiratory failure, [id number] Narrative/Plan: Due to superimposed pneumonia, on COPD exacerbation and underlying IPF. The patient is improved with aggressive treatment. Defer to the admitting service and progressive medicine for continued management. The patient is O2 dependent at home Status: Acute Code(s): J96.20 - ACUTE AND CHR RESP FAILURE, UNSP W HYPOXIA OR HYPERCAPNIA SNOMED Code(s): 96368743 (3) Leucocytosis Narrative/Plan: This is reactive, due to acute illness and steroids, as well as recovery of her WBC post chemotherapy with Neulasta effect. No hematology intervention required Status: Acute Code(s): D72.829 - ELEVATED WHITE BLOOD CELL COUNT, UNSPECIFIED SNOMED Code(s): 088295602
--- NOTE | 2019-01-15 16:03 | P.DS ---
Providers Date of admission: 01/08/19 16:43 Expected date of discharge: 01/14/19 Attending physician: Shashi England Consults: 01/08/19 16:43 Consult Physician Routine Consulting Provider: Leobardo Nunn Consult Reason/Comments: hypoxic respiratory failure Do you want consulting provider notified?: Yes 01/13/19 11:53 Consult Physician Routine Consulting Provider: Israel Rodriguez Consult Reason/Comments: DISCUSS POSSIBLE DELAY OF CHEMO FOR REHAB PLACEMENT. Do you want consulting provider notified?: Yes Primary care physician: [facility] Course: Final Diagnoses: Acute on chronic hypoxic respiratory failure due to IPF IPF Possible Pneumonia Right neck mass positive for High-grade neuroendocrine cancer, on chemotherapy Hypertension Dyslipidemia Hospital course:This is 63-year-old gentleman admitted with Acute on chronic hypoxic respiratory failure, idiopathic pulmonary fibrosis, leukocytosis, right neck mass, high-grade neuroendocrine tumor, hypertension hypertensive cardiovascular disease, dyslipidemia and multiple other medical issues. 01/12/2019 maintained on nebulized bronchodilators, IV steroids, antibiotics of Zithromax ,Rocephin,Esbriet( home med).Complaints of exertional shortness of breath as well as at rest, not quite back to baseline. maintaining O2 sats from 89-91% on 5 L nasal cannula. Afebrile. Blood cultures negative. 01/13/2019 Breathing improving, maintaining O2 sats in the mid 90s on 5 L nasal cannula. Afebrile. Patient expressing that he has major difficulties ambulating and is interested in holding off on chemo and proceeding with subacute rehab for a couple weeks. Potassium 5.9 , received Kayexalate, potassium now down to 4.7. Initially patient had wanted to defer further chemo treatment and go to subacute rehab but now adamant on being discharged home. States his son and [id number] will move into his home to help take care of him. Refusing to stay another night. Cleared by all consults for discharge. Patient is being discharged home in a stable condition with guarded prognosis. Patient will need to to be sent home with a nebulizer machine, requires a walker for gait dysfunction/weakness. EXAM: GENERAL: Alert and oriented 3, No acute distress. LUNGS: Equal air entry with coarse scattered crackles. CVS: S1 and S2 normal with no audible murmur, regular rhythm. ABDOMEN: Soft, nontender .normal bowel sounds, no guarding or rigidity. CENTRAL NERVOUS SYSTEM: No focal deficits. The impression and plan of care has been dictated as directed. : I performed a history and examination of this patient, discussed the same with the dictator. I agree with the dictator's note ,documented as a scribe. Any additional findings or plans will be noted. Time taken: 35 minutes Patient Condition at Discharge: Stable Plan - Discharge Summary Discharge Rx Participant: No New Discharge Prescriptions: New Budesonide-Formot 160-4.5 Mcg [Symbicort 160-4.5 Mcg Inhaler] 2 puff INHALATION RT-BID #1 inh predniSONE 10 mg PO DIRECTED #27 tab Cefuroxime Axetil [Ceftin] 500 mg PO BID #14 tab Ipratropium-Albuterol Nebulize [Duoneb 0.5 mg-3 mg/3 ml Soln] 3 ml INHALATION QID #120 ampul.neb Continue Ondansetron [Zofran] 4 mg PO Q6HR PRN PRN Reason: Nausea And Vomiting Ibuprofen [Motrin] 800 mg PO TID Fluticasone Nasal [place] [Flonase Nasal [place]] 2 spray EA NOSTRIL DAILY Atorvastatin [Lipitor] 10 mg PO DAILY HYDROcodone/APAP 5-325MG [[place] 5-325] 1 tab PO BID PRN PRN Reason: Pain Pirfenidone [Esbriet] 3 tab PO DAILY predniSONE 1 - 2 tab PO DAILY #0 Discontinued Sulfamethox-Tmp 800-160Mg [Bactrim DS 800-160 mg] 1 tab PO MOWEFR Losartan [Cozaar] 25 mg PO DAILY Discharge Medication List Atorvastatin [Lipitor] 10 mg PO DAILY 01/08/19 [History] Fluticasone Nasal [place] [Flonase Nasal [place]] 2 spray EA NOSTRIL DAILY 01/08/19 [History] HYDROcodone/APAP 5-325MG [[place] 5-325] 1 tab PO BID PRN 01/08/19 [History] Ibuprofen [Motrin] 800 mg PO TID 01/08/19 [History] Ondansetron [Zofran] 4 mg PO Q6HR PRN 01/08/19 [History] Pirfenidone [Esbriet] 3 tab PO DAILY 01/08/19 [History] Budesonide-Formot 160-4.5 Mcg [Symbicort 160-4.5 Mcg Inhaler] 2 puff INHALATION RT-BID #1 inh 01/13/19 [Rx] predniSONE 1 - 2 tab PO DAILY #0 01/13/19 [Rx] predniSONE 10 mg PO DIRECTED #27 tab 01/13/19 [Rx] Cefuroxime Axetil [Ceftin] 500 mg PO BID #14 tab 01/14/19 [Rx] Ipratropium-Albuterol Nebulize [Duoneb 0.5 mg-3 mg/3 ml Soln] 3 ml INHALATION QID #120 ampul.neb 01/14/19 [Rx] Follow up Appointment(s)/Referral(s): Blayne Newman MD [Family Provider] - 1 Week (Office is closed. please call to schedule appointment) [facility] [NON-STAFF] - 1-2 Days Shashi England MD [Primary Care Provider] - 1 Week (Office is closed. Please call to schedule appointment) [facility], [NON-STAFF] - 1-2 Days Patient Instructions/Handouts: Pulmonary Fibrosis (DC), Pneumonia (DC) Activity/Diet/Wound Care/Special Instructions: on 5l nc O2 at home Discharge Disposition: HOME WITH HOME HEALTH SERVICES
== END 2019-01-14 17:16 | disposition home health service (06) | DRG 189 ==
LOC: EC 14:30 → 3SCARD 16:43
PROVIDERS: ADMIT Family Medicine; ATTEND Family Medicine
DX: J96.21 Acute and chronic respiratory failure with hypoxia (principal); J18.9 Pneumonia, unspecified organism; C7A.1 Malignant poorly differentiated neuroendocrine tumors; E87.3 Alkalosis; J44.0 Chronic obstructive pulmonary disease with (acute) lower respiratory infection; J44.1 Chronic obstructive pulmonary disease with (acute) exacerbation; R64 Cachexia; E78.5 Hyperlipidemia, unspecified; E87.5 Hyperkalemia; I11.9 Hypertensive heart disease without heart failure; I27.20 Pulmonary hypertension, unspecified; J84.112 Idiopathic pulmonary fibrosis; Z68.20 Body mass index [BMI] 20.0-20.9, adult; T38.0X5A Adverse effect of glucocorticoids and synthetic analogues, initial encounter; Z79.51 Long term (current) use of inhaled steroids; Z79.52 Long term (current) use of systemic steroids; Z79.899 Other long term (current) drug therapy; Z82.49 Family history of ischemic heart disease and other diseases of the circulatory system; Z85.828 Personal history of other malignant neoplasm of skin; Z99.81 Dependence on supplemental oxygen; Z87.01 Personal history of pneumonia (recurrent); D72.829 Elevated white blood cell count, unspecified; R00.0 Tachycardia, unspecified
CPT/HCPCS: 36415; 71046; 71275; 80048; 80053; 83735; 83880; 84132; 84484; 85025; 85610; 85730; 87040; 93005; 94640; 96365; 96375; 99285

== ENCOUNTER → 2019-04-11 | Outpatient (CLI) | payer MEDICARE ==
--- NOTE | 2019-04-14 07:49 | PE ---
EXAMINATION TYPE: PET CT fusion skull to thigh DATE OF EXAM: 04/11/2019 COMPARISON: Prior PET/CT October 21, 2018. Prior CTA chest January 08, 2019 [address] older [address]s. HISTORY: History of melanoma left ear and left nose treated 2017 with surgery with lung cancer diagno sed 2017 completed chemotherapy 2 months ago. TECHNIQUE: Following the intravenous administration of 11.09 mCi of F-18 FDG, whole body images are performed from the top of skull to the midthigh. Images are reviewed on the computer in the coronal, axial, and sagittal planes. Reconstructed rotating images are created on independent workstation an d reviewed on the computer. A noncontrast CT is performed in conjunction with the PET scan. SCAN: Subsequent Scan FINDINGS: HEAD AND NECK: Persistent suspicious 8 mm hypermetabolic right posterior cervical triangle soft tiss ue nodule axial image 71 given patient's history of melanoma. The max SUV is 3.04. Fairly stable find ings from prior. Second adjacent subcentimeter nodule not as well-seen on current study. CHEST, MEDIASTINUM, AND HILAR REGION: Background fairly advanced emphysematous change with right uppe r lung honeycombing and bullous/bleb formation. There are scattered bulla and blebs throughout both m id to lower lungs. No new areas of suspicious hypermetabolic uptake. ABDOMEN AND PELVIS: Normal excretion from right kidney. No new areas of suspicious hypermetabolic upt nadya. Previously visualized hypermetabolic low dense right hepatic lobe lesion not clearly seen on cur rent CT or PET images OSSEOUS STRUCTURES: No new areas of suspicious hypermetabolic uptake. OTHER CT: Mild calcified plaque bilateral carotid bulb level. Enlarged pulmonary arteries, CT findings consistent with underlying pulmonary artery hypertension. Ca rdiomegaly with coronary artery calcification is redemonstrated. Bilateral gynecomastia is redemonstr ated. There is 1.6 cm hyperdense round lesion anterior right kidney axial image 178 favoring proteinaceous or hemorrhagic cyst without abnormal hypermetabolic uptake stable or slightly larger from prior CT. L eft kidney is congenitally or surgically absent. No distinct surgical clips are seen. There is prominence of fecal material in the right colon and sigmoid colon/rectum. Prostate gland is mildly enlarged. Adjacent phleboliths are seen. Correlate for BPH. Sigmoid colonic diverticulosis red emonstrated. Multilevel spurring in the spine. Mild calcified plaque of the aorta. IMPRESSION: Subcentimeter right posterior round soft tissue lesion with hypermetabolic uptake redemon strated, max SUV fairly stable. Second lesion not clearly seen. Metastatic melanoma needs to be consi dered. No new areas of suspicious hypermetabolic uptake. Nonvisualization of right liver lesion on cu rrent study.
== END | disposition home or self-care (01) ==
LOC: RADPETMAIN 09:16
PROVIDERS: ATTEND Internal Medicine Hematology & Oncology
DX: M79.89 Other specified soft tissue disorders (principal); C34.11 Malignant neoplasm of upper lobe, right bronchus or lung; Z92.21 Personal history of antineoplastic chemotherapy
CPT/HCPCS: 78815; A9552

== ENCOUNTER 2019-10-09 14:49 | Emergency (ER) | payer MEDICARE ==
[~2019-10-09 14:49] MED LIST: AMIODARONE 50 MG/ML 3 ML VIAL IV ONE; DEXTROSE 5% IN WATER 50 ML BAG ONE; EPINEPHrine 10 ML SYRINGE (0.1 MG/ML) ONE; SODIUM BICARB 8.4% 50 ML SYR (1 MEQ/ML) ONE
--- NOTE | 2019-10-09 17:24 | ED ---
General Adult HPI - General Stated complaint: Full arrest Time Seen by Provider: 10/09/19 15:21 Source: EMS, RN notes reviewed, old records reviewed - History of Present Illness Initial comments: 64-year-old male presenting in cardiac arrest. Initially patient was asystole followed by a brief period of V. fib again followed by asystole. Patient had no return of spontaneous circulation during transport. Initial arrest was 1352, he presented to the emergency department at approximately 1450. Patient has history of lung cancer COPD and pulmonary fibrosis. - Related Data Home Medications Medication Instructions Recorded Confirmed Atorvastatin [Lipitor] 10 mg PO DAILY 01/08/19 01/08/19 Fluticasone Nasal [place] [Flonase 2 spray EA NOSTRIL DAILY 01/08/19 01/08/19 Nasal [place]] HYDROcodone/APAP 5-325MG [[place] 1 tab PO BID PRN 01/08/19 01/08/19 5-325] Ibuprofen [Motrin] 800 mg PO TID 01/08/19 01/08/19 Ondansetron [Zofran] 4 mg PO Q6HR PRN 01/08/19 01/08/19 Pirfenidone [Esbriet] 3 tab PO DAILY 01/08/19 01/08/19 Previous Rx's Medication Instructions Recorded Budesonide-Formot 160-4.5 Mcg 2 puff INHALATION RT-BID #1 inh 01/13/19 [Symbicort 160-4.5 Mcg Inhaler] predniSONE 1 - 2 tab PO DAILY #0 01/13/19 predniSONE 10 mg PO DIRECTED #27 tab 01/13/19 Cefuroxime Axetil [Ceftin] 500 mg PO BID #14 tab 01/14/19 Ipratropium-Albuterol Nebulize 3 ml INHALATION QID #120 ampul.neb 01/14/19 [Duoneb 0.5 mg-3 mg/3 ml Soln] Allergies Allergy/AdvReac Type Severity Reaction Status Date / Time No Known Allergies Allergy Verified 01/08/19 15:03 Review of Systems ROS Statement: Those systems with pertinent positive or pertinent negative responses have been documented in the HPI. ROS Other: All systems not noted in ROS Statement are negative. Past Medical History Past Medical History: Cancer, Hyperlipidemia, Hypertension, Pneumonia Additional Past Medical History / Comment(s): lung fibrosis, small cell carcinoma left neck, skin cancer one ear with removal, had chemo last week (past 7 days) History of Any Multi-Drug Resistant Organisms: None Reported Past Surgical History: Appendectomy Past Anesthesia/Blood Transfusion Reactions: No Reported Reaction Past Psychological History: No Psychological Hx Reported Smoking Status: Never smoker Past Alcohol Use History: None Reported Past Drug Use History: None Reported - Past Family History Father Family Medical History: Myocardial Infarction ([place]) Mother Family Medical History: No Reported History General Exam General appearance: other (Patient intubated with a Michael tube during transport. Patient is pale and cyanotic.) Eye exam: Absent: PERRL (Pupils are nonreactive) Neck exam: Present: other (Cyanosis, JVD) Respiratory exam: Present: other (Patient has bilateral breath sounds with BVM) Cardiovascular Exam: Present: other (No spontaneous heart sounds, bedside echo shows cardiac standstill) GI/Abdominal exam: Present: distended. Absent: tenderness, guarding Extremities exam: Present: other (, No distal pulses) Skin exam: Present: intact, cyanosis, pallor Procedures - Intubation Laryngoscope: Krystian Assist Device Used: Bougie ET Tube Size: 8 ET Tube Uncuffed: No Tube Secured Depth (cm): 24 Tube Secured Location: lips Tube Placement Confirmation: visualized tube passing through cords, equal breath sounds bilaterally, no breath sounds over epigastrium, confirmation by capnometry Patient Tolerated Procedure: well Intubation Complications: none Medical Decision Making - Medical Decision Making 64-year-old male presenting in cardiopulmonary arrest. Patient had approximately one hour downtime prior to arrival. He is in asystole at the time of arrival. CP are is continued in the emergency department according to ACLS protocol. Please see nursing documentation for exact details. His Michael tube was replaced with an endotracheal tube. Resuscitative efforts are unsuccessful. Ultimately time of is called at 1501. I did discuss case with patient's primary care physician Dr. England and the medical microbiologist. Total downtime prehospital was approximately one hour with rhythm changes but no return of spontaneous circulation. Diagnosis, cardiopulmonary arrest, asystole. Disposition Clinical Impression: Cardiopulmonary arrest, Asystole Disposition: Condition: Undetermined Referrals: Joshua England MD [Primary Care Provider] - 1-2 days Preliminary Cause of : Cardiopulmonary arrest
== END 2019-10-09 20:31 | disposition expired ==
LOC: EC 14:49
DX: I46.9 Cardiac arrest, cause unspecified (principal); I10 Essential (primary) hypertension; E78.5 Hyperlipidemia, unspecified; J44.0 Chronic obstructive pulmonary disease with (acute) lower respiratory infection; J18.9 Pneumonia, unspecified organism; J84.10 Pulmonary fibrosis, unspecified; Z79.51 Long term (current) use of inhaled steroids; Z79.899 Other long term (current) drug therapy; Z85.828 Personal history of other malignant neoplasm of skin; Z85.118 Personal history of other malignant neoplasm of bronchus and lung
CPT/HCPCS: 31500; 92950; 99285